=== PATIENT | female | born 1940 | race African-American/Black ===

== ENCOUNTER 2017-10-06 07:30 | Day surgery (SDC) | payer MEDICARE, BC ==
[~2017-10-06] VITALS: Ht 160 cm; Wt 43.5 kg
[~2017-10-06 07:30] MED LIST: ASPI81TA35; ESOM20CA; HYDR-2510; POTA99TA4; PRED5TAB48
[2017-10-06] MEDS ORDERED: PROPOFOL 10MG/ML 100ML 100 ML IV ONE (07:39)
[2017-10-06] MEDS ORDERED: GENTAMICIN SULF 40MG/ML 2ML VIAL ONE (08:05)
[2017-10-06] MEDS ORDERED: DEXAMETHASONE 4MG/ML 1ML VIAL ONE (08:05)
[2017-10-06] MEDS ORDERED: LIDOCAINE HCL 1% 20ML VIAL (Pyxis) INJ ONE (08:06)
[2017-10-06] MEDS ORDERED: BUPIVACAINE HCL/PF 0.25% (2.5MG/ML) 10ML ONE (08:06)
[2017-10-06] MEDS ORDERED: BETAMETHASONE ACET/BETAMET 30 MG/5 ML VIAL IM ONE (08:08)
[2017-10-06] MEDS ORDERED: FENTANYL CITRATE/PF 50MCG/ML 2ML VIAL IV PRN (09:15)
[2017-10-06] MEDS ORDERED: ONDANSETRON HCL 4MG/2ML VIAL IV PRN (09:15)
[2017-10-06] MEDS ORDERED: MORPHINE SULFATE 2 MG/ML CPJ (NOT FOR IM USE) IV PRN (09:15)
[2017-10-06] MEDS ORDERED: CALC-25 PO (10:06)
[2017-10-06] MEDS ORDERED: MULT-1203 PO (10:06)
[2017-10-06] MEDS ORDERED: PRED5TAB48 PO (10:06)
[2017-10-06] MEDS ORDERED: AZAT50TA18 PO (10:06)
[2017-10-06] MEDS ORDERED: VITA400T7 PO (10:06)
[2017-10-06] MEDS ORDERED: POTA20TA82 PO (10:06)
[2017-10-06] MEDS ORDERED: HYDR-2510 PO (10:06)
== END 2017-10-06 11:45 | disposition home or self-care (01) ==
LOC: OR 07:30
PROVIDERS: ATTEND Podiatrist Foot & Ankle Surgery
DX: M20.22 Hallux rigidus, left foot (principal); M89.9 Disorder of bone, unspecified; I10 Essential (primary) hypertension; B19.20 Unspecified viral hepatitis C without hepatic coma; K21.9 Gastro-esophageal reflux disease without esophagitis; M19.90 Unspecified osteoarthritis, unspecified site; Z98.890 Other specified postprocedural states; Z79.899 Other long term (current) drug therapy; Z79.82 Long term (current) use of aspirin
CPT/HCPCS: 28104; 88304; 88311; J0702; J1580; J2704; J3490; J7120; J1100

== ENCOUNTER 2021-05-27 16:25 | Inpatient (IN) | payer BC ==
[~2021-05-27] VITALS: Ht 152.4 cm; Wt 40.9 kg
[~2021-05-27 16:25] MED LIST changes: -ASPI81TA35; +ASPI81TA47; +AZAT50TA18 PO; +CALC-26 PO; -HYDR-2510; +HYDR50TA PO; +MULT-1203 PO; +POTA20TA82 PO; -POTA99TA4; -PRED5TAB48; +PRED5TAB48 PO; +VITA400T7 PO
[2021-05-27 20:00] VITALS: BP_SYST 147; BP_SYST 151; BP_DIAS 91; BP_DIAS 93
[2021-05-27] MEDS ORDERED: ONDANSETRON HCL 4MG TABLET PO PRN (20:00)
[2021-05-27] MEDS ORDERED: ACETAMINOPHEN 325MG TABLET PO PRN ×2 (20:00)
[2021-05-28 06:14] LABS: BASOPHILS % 0.4 % (0.0-2.0); EOSINOPHILS % 0.9 % (0.0-5.0); HEMATOCRIT. 42.3 % (36.0-48.0); LYMPHOCYTES % 34.9 % (20.0-50.0); MEAN CORPUSCULAR HEMOGLOBIN 29.5 pg (28.0-32.0); MEAN CORPUSCULAR VOLUME 89.2 fL (81.0-99.0); MEAN PLATELET VOLUME 8.1 fl (7.4-10.4); MONOCYTES % 9.7 % (2.0-8.0); NEUTROPHILS % 54.1 % (40.0-76.0); PLATELET 251 x1000/uL (130-400); RED BLOOD CELL COUNT 4.74 mill/uL (4.2-5.4); RED CELL DISTRIBUTION WIDTH 13.5 % (11.6-14.6)
[2021-05-28 06:21] LABS: CHLORIDE 119 mEq/L (98-107)
[2021-05-28 06:33] LABS: CREATINE KINASE 48 IU/L (26-192)
[2021-05-28 06:39] LABS: PHOSPHORUS 2.9 mg/dL (2.5-4.9)
[2021-05-28 06:42] LABS: FERRITIN 517 ng/mL (10-291)
[2021-05-28 06:46] LABS: TOTAL IRON BINDING CAPACITY 195 ug/dL (250-450)
[2021-05-28 06:53] LABS: FOLIC ACID (FOLATE) SERUM >20 ng/mL ng/mL (>5.38)
[2021-05-28 06:56] LABS: VITAMIN B12 SERUM 1184 pg/mL (211-911)
[2021-05-28 08:00] VITALS: BP 136/82
[2021-05-28] MEDS: MULTIVITAMINS,THER W-MINERALS TABLET PO SCH (08:34)
[2021-05-28] MEDS: ASCORBIC ACID 500 MG TABLET PO SCH (08:34)
[2021-05-28] MEDS: ZINC SULFATE 220 MG ( 50 ) CAPSULE PO SCH (08:34)
[2021-05-28] MEDS: ENOXAPARIN 30MG/0.3ML SYR SUBCUT SCH (08:37)
[2021-05-28 08:45] LABS: CLARITY URINE CLOUDY (CLEAR); COLOR URINE DARK YELLOW (YELLOW); KETONES URINE TRACE (NEGATIVE); LEUKOCYTE ESTERASE URINE NEGATIVE (NEGATIVE); NITRITE URINE NEGATIVE (NEGATIVE); OCCULT BLOOD URINE NEGATIVE (NEGATIVE); PROTEIN URINE TRACE (NEGATIVE); SPECIFIC GRAVITY URINE 1.018 (1.005-1.030)
[2021-05-28] MEDS ORDERED: POTASSIUM CHLORIDE 20MEQ TABLET SR PO NR ×2 (15:30→15:45)
[2021-05-28] MEDS: DOCUSATE SODIUM 100MG CAPSULE PO SCH (16:11)
[2021-05-28 20:00] VITALS: BP 145/87
[2021-05-28] MEDS: LACTULOSE 20G/30ML UDC PO PRN (21:15)
[2021-05-28] MEDS: POLYETHYLENE GLYCOL 3350 (17GM) 1 DOSE PACK PO SCH (21:15)
[2021-05-29 07:25] LABS: CHLORIDE 116 mEq/L (98-107)
[2021-05-29 07:30] VITALS: BP 154/85
[2021-05-29] MEDS: ZINC SULFATE 220 MG ( 50 ) CAPSULE PO SCH (08:40)
[2021-05-29] MEDS: ASCORBIC ACID 500 MG TABLET PO SCH (08:40)
[2021-05-29] MEDS: MULTIVITAMINS,THER W-MINERALS TABLET PO SCH (08:40)
[2021-05-29] MEDS: ENOXAPARIN 30MG/0.3ML SYR SUBCUT SCH (08:41)
[2021-05-29] MEDS: DOCUSATE SODIUM 100MG CAPSULE PO SCH (08:44)
[2021-05-29] MEDS: LACTULOSE 20G/30ML UDC PO PRN (08:44)
[2021-05-29 20:00] VITALS: BP 125/73
[2021-05-29] MEDS: POLYETHYLENE GLYCOL 3350 (17GM) 1 DOSE PACK PO SCH ×3 (21:00→22:06)
[2021-05-30 08:24] VITALS: BP 107/56
[2021-05-30 08:29] LABS: BASOPHILS % 0.4 % (0.0-2.0); HEMOGLOBIN. 13.5 g/dL (12.0-16.0); LYMPHOCYTES % 30.4 % (20.0-50.0); MEAN PLATELET VOLUME 8.6 fl (7.4-10.4); MONOCYTES % 11.4 % (2.0-8.0); NEUTROPHILS % 56.8 % (40.0-76.0); PLATELET 226 x1000/uL (130-400); RED CELL DISTRIBUTION WIDTH 13.6 % (11.6-14.6)
[2021-05-30 08:38] LABS: INR 1.3; PROTHROMBIN TIME 13.3 sec (9.6-11.0)
[2021-05-30] MEDS: DOCUSATE SODIUM 100MG CAPSULE PO SCH (09:00)
[2021-05-30 09:14] LABS: CHLORIDE 119 mEq/L (98-107)
[2021-05-30] MEDS: MULTIVITAMINS,THER W-MINERALS TABLET PO SCH (10:03)
[2021-05-30] MEDS: ZINC SULFATE 220 MG ( 50 ) CAPSULE PO SCH (10:03)
[2021-05-30] MEDS: ASCORBIC ACID 500 MG TABLET PO SCH (10:03)
[2021-05-30] MEDS: ENOXAPARIN 30MG/0.3ML SYR SUBCUT SCH (10:04)
[2021-05-30] MEDS ORDERED: DEXT 5%/0.45% NACL 500ML 500 ML IV SCH (12:30)
[2021-05-30] MEDS: DEXT 5%/0.45% NACL 1000ML 1,000 ML IV SCH (15:00)
[2021-05-30 20:00] VITALS: BP 109/59
[2021-05-30] MEDS: POLYETHYLENE GLYCOL 3350 (17GM) 1 DOSE PACK PO SCH (21:00)
[2021-05-31] MEDS: DEXT 5%/0.45% NACL 1000ML 1,000 ML IV SCH ×2 (02:36→14:26)
[2021-05-31 08:23] VITALS: BP 153/86
[2021-05-31] MEDS: ASCORBIC ACID 500 MG TABLET PO SCH (08:25)
[2021-05-31] MEDS: DOCUSATE SODIUM 100MG CAPSULE PO SCH (08:25)
[2021-05-31] MEDS: ZINC SULFATE 220 MG ( 50 ) CAPSULE PO SCH (08:25)
[2021-05-31] MEDS: MULTIVITAMINS,THER W-MINERALS TABLET PO SCH (08:25)
[2021-05-31] MEDS: ENOXAPARIN 30MG/0.3ML SYR SUBCUT SCH ×2 (08:26→08:31)
[2021-05-31 20:00] VITALS: BP 137/80
[2021-05-31] MEDS: POLYETHYLENE GLYCOL 3350 (17GM) 1 DOSE PACK PO SCH (21:00)
[2021-06-01] MEDS: DEXT 5%/0.45% NACL 1000ML 1,000 ML IV SCH ×2 (05:04→19:17)
[2021-06-01 06:46] LABS: BASOPHILS % 0.2 % (0.0-2.0); EOSINOPHILS % 0.7 % (0.0-5.0); HEMATOCRIT. 38.4 % (36.0-48.0); LYMPHOCYTES % 25.2 % (20.0-50.0); MEAN CORPUSCULAR HEMOGLOBIN 30.1 pg (28.0-32.0); MEAN CORPUSCULAR VOLUME 89.2 fL (81.0-99.0); MEAN PLATELET VOLUME 8.5 fl (7.4-10.4); MONOCYTES % 13.4 % (2.0-8.0); NEUTROPHILS % 60.5 % (40.0-76.0); PLATELET 175 x1000/uL (130-400); RED CELL DISTRIBUTION WIDTH 13.3 % (11.6-14.6)
[2021-06-01 06:57] LABS: CHLORIDE 115 mEq/L (98-107)
[2021-06-01 07:58] VITALS: BP 129/71
[2021-06-01] MEDS ORDERED: POTASSIUM CHLORIDE 20MEQ TABLET SR PO NR (09:45)
[2021-06-01] MEDS: ZINC SULFATE 220 MG ( 50 ) CAPSULE PO SCH (09:59)
[2021-06-01] MEDS: MULTIVITAMINS,THER W-MINERALS TABLET PO SCH (09:59)
[2021-06-01] MEDS: DOCUSATE SODIUM 100MG CAPSULE PO SCH (09:59)
[2021-06-01] MEDS: ENOXAPARIN 30MG/0.3ML SYR SUBCUT SCH (09:59)
[2021-06-01] MEDS: ASCORBIC ACID 500 MG TABLET PO SCH (09:59)
[2021-06-01 20:00] VITALS: BP 136/85
[2021-06-01] MEDS: POLYETHYLENE GLYCOL 3350 (17GM) 1 DOSE PACK PO SCH (20:32)
[2021-06-02 06:53] LABS: CHLORIDE 111 mEq/L (98-107)
[2021-06-02 08:00] VITALS: BP 155/92
[2021-06-02] MEDS: ASCORBIC ACID 500 MG TABLET PO SCH (08:24)
[2021-06-02] MEDS: MULTIVITAMINS,THER W-MINERALS TABLET PO SCH (08:24)
[2021-06-02] MEDS: DOCUSATE SODIUM 100MG CAPSULE PO SCH (08:24)
[2021-06-02] MEDS: ENOXAPARIN 30MG/0.3ML SYR SUBCUT SCH (08:24)
[2021-06-02] MEDS: ZINC SULFATE 220 MG ( 50 ) CAPSULE PO SCH (08:27)
[2021-06-02] MEDS: DEXT 5%/0.45% NACL 1000ML 1,000 ML IV SCH (08:36)
[2021-06-02] MEDS ORDERED: POTASSIUM CHLORIDE 20MEQ TABLET SR PO NR (12:30)
[2021-06-02 19:10] LABS: 25-HYDROXY VITAMIN D3 31 ng/mL (.)
[2021-06-02 20:00] VITALS: BP 124/63
[2021-06-02] MEDS: POLYETHYLENE GLYCOL 3350 (17GM) 1 DOSE PACK PO SCH (20:53)
[2021-06-03] MEDS: DEXT 5%/0.45% NACL 1000ML 1,000 ML IV SCH ×4 (00:58→22:25)
[2021-06-03 06:48] LABS: CHLORIDE 111 mEq/L (98-107)
[2021-06-03 07:57] VITALS: BP 159/82
[2021-06-03] MEDS: MULTIVITAMINS,THER W-MINERALS TABLET PO SCH (08:18)
[2021-06-03] MEDS: ASCORBIC ACID 500 MG TABLET PO SCH (08:18)
[2021-06-03] MEDS: ZINC SULFATE 220 MG ( 50 ) CAPSULE PO SCH (08:18)
[2021-06-03] MEDS: DOCUSATE SODIUM 100MG CAPSULE PO SCH (08:18)
[2021-06-03] MEDS: ENOXAPARIN 30MG/0.3ML SYR SUBCUT SCH (08:19)
[2021-06-03] MEDS: POTASSIUM CHLORIDE 20MEQ TABLET SR PO SCH (16:12)
[2021-06-03 20:00] VITALS: BP 129/73
[2021-06-03] MEDS: POLYETHYLENE GLYCOL 3350 (17GM) 1 DOSE PACK PO SCH ×2 (21:00→22:20)
[2021-06-04 07:42] LABS: CHLORIDE 107 mEq/L (98-107)
[2021-06-04 08:26] VITALS: BP 190/98
[2021-06-04] MEDS: ZINC SULFATE 220 MG ( 50 ) CAPSULE PO SCH (10:00)
[2021-06-04] MEDS: MULTIVITAMINS,THER W-MINERALS TABLET PO SCH (10:00)
[2021-06-04] MEDS: POTASSIUM CHLORIDE 20MEQ TABLET SR PO SCH ×2 (10:00→18:21)
[2021-06-04] MEDS: DOCUSATE SODIUM 100MG CAPSULE PO SCH (10:00)
[2021-06-04] MEDS: ASCORBIC ACID 500 MG TABLET PO SCH (10:01)
[2021-06-04] MEDS: ENOXAPARIN 30MG/0.3ML SYR SUBCUT SCH (10:01)
[2021-06-04] MEDS: DEXT 5%/0.45% NACL 1000ML 1,000 ML IV SCH ×2 (12:45→21:07)
[2021-06-04] MEDS: POLYETHYLENE GLYCOL 3350 (17GM) 1 DOSE PACK PO SCH (18:21)
[2021-06-04] MEDS: ERGOCALCIFEROL 50000UNITS CAPSULE PO SCH (18:21)
[2021-06-04 20:00] VITALS: BP 122/88
[2021-06-04] MEDS: SENNOSIDES/DOCUSATE SOD 8.6/50MG TABLET PO SCH (21:07)
[2021-06-05 08:00] VITALS: BP 151/87
[2021-06-05] MEDS: DOCUSATE SODIUM 100MG CAPSULE PO SCH (09:08)
[2021-06-05] MEDS: ZINC SULFATE 220 MG ( 50 ) CAPSULE PO SCH (09:08)
[2021-06-05] MEDS: ASCORBIC ACID 500 MG TABLET PO SCH (09:08)
[2021-06-05] MEDS: POTASSIUM CHLORIDE 20MEQ TABLET SR PO SCH ×2 (09:08→17:08)
[2021-06-05] MEDS: MULTIVITAMINS,THER W-MINERALS TABLET PO SCH (09:08)
[2021-06-05] MEDS: POLYETHYLENE GLYCOL 3350 (17GM) 1 DOSE PACK PO SCH (09:09)
[2021-06-05] MEDS: ENOXAPARIN 30MG/0.3ML SYR SUBCUT SCH (09:15)
[2021-06-05] MEDS: DEXT 5%/0.45% NACL 1000ML 1,000 ML IV SCH (16:01)
[2021-06-05 20:00] VITALS: BP 155/94
[2021-06-05] MEDS: SENNOSIDES/DOCUSATE SOD 8.6/50MG TABLET PO SCH (20:31)
[2021-06-06] MEDS: DEXT 5%/0.45% NACL 1000ML 1,000 ML IV SCH ×2 (04:17→17:46)
[2021-06-06 07:33] LABS: HEMATOCRIT. 36.2 % (36.0-48.0); HEMOGLOBIN. 12.1 g/dL (12.0-16.0); MEAN CORPUSCULAR HEMOGLOBIN 29.3 pg (28.0-32.0); MEAN CORPUSCULAR VOLUME 87.5 fL (81.0-99.0); MEAN PLATELET VOLUME 8.8 fl (7.4-10.4); PLATELET 193 x1000/uL (130-400); RED BLOOD CELL COUNT 4.13 mill/uL (4.2-5.4); RED CELL DISTRIBUTION WIDTH 13.4 % (11.6-14.6)
[2021-06-06 07:44] LABS: CHLORIDE 107 mEq/L (98-107)
[2021-06-06 07:51] VITALS: BP 144/82
[2021-06-06] MEDS: ENOXAPARIN 30MG/0.3ML SYR SUBCUT SCH (08:14)
[2021-06-06] MEDS: DOCUSATE SODIUM 100MG CAPSULE PO SCH (08:14)
[2021-06-06] MEDS: POTASSIUM CHLORIDE 20MEQ TABLET SR PO SCH ×2 (08:14→16:39)
[2021-06-06] MEDS: ZINC SULFATE 220 MG ( 50 ) CAPSULE PO SCH (08:14)
[2021-06-06] MEDS: MULTIVITAMINS,THER W-MINERALS TABLET PO SCH (08:14)
[2021-06-06] MEDS: ASCORBIC ACID 500 MG TABLET PO SCH (08:14)
[2021-06-06] MEDS: POLYETHYLENE GLYCOL 3350 (17GM) 1 DOSE PACK PO SCH (08:14)
[2021-06-06] MEDS ORDERED: POTASSIUM CHLORIDE 20MEQ TABLET SR PO NR (15:00)
[2021-06-06 15:55] LABS: PLATELET ESTIMATE NORMAL
[2021-06-06 20:00] VITALS: BP 125/71
[2021-06-06] MEDS: SENNOSIDES/DOCUSATE SOD 8.6/50MG TABLET PO SCH (20:36)
[2021-06-07 07:48] VITALS: BP 160/85
[2021-06-07] MEDS: ZINC SULFATE 220 MG ( 50 ) CAPSULE PO SCH (09:02)
[2021-06-07] MEDS: ASCORBIC ACID 500 MG TABLET PO SCH (09:02)
[2021-06-07] MEDS: MULTIVITAMINS,THER W-MINERALS TABLET PO SCH (09:02)
[2021-06-07] MEDS: POTASSIUM CHLORIDE 20MEQ TABLET SR PO SCH ×3 (09:02→17:47)
[2021-06-07] MEDS: DOCUSATE SODIUM 100MG CAPSULE PO SCH (09:02)
[2021-06-07] MEDS: POLYETHYLENE GLYCOL 3350 (17GM) 1 DOSE PACK PO SCH (09:02)
[2021-06-07] MEDS: ENOXAPARIN 30MG/0.3ML SYR SUBCUT SCH (09:02)
[2021-06-07] MEDS: DEXT 5%/0.45% NACL 1000ML 1,000 ML IV SCH ×2 (09:03→21:40)
[2021-06-07 20:00] VITALS: BP 126/66
[2021-06-07] MEDS: SENNOSIDES/DOCUSATE SOD 8.6/50MG TABLET PO SCH (21:40)
[2021-06-08 08:00] VITALS: BP 164/92
[2021-06-08] MEDS: DOCUSATE SODIUM 100MG CAPSULE PO SCH (11:02)
[2021-06-08] MEDS: POTASSIUM CHLORIDE 20MEQ TABLET SR PO SCH ×2 (11:02→17:50)
[2021-06-08] MEDS: ENOXAPARIN 30MG/0.3ML SYR SUBCUT SCH (11:02)
[2021-06-08] MEDS: ZINC SULFATE 220 MG ( 50 ) CAPSULE PO SCH (11:02)
[2021-06-08] MEDS: ASCORBIC ACID 500 MG TABLET PO SCH (11:02)
[2021-06-08] MEDS: POLYETHYLENE GLYCOL 3350 (17GM) 1 DOSE PACK PO SCH ×2 (11:02→11:04)
[2021-06-08] MEDS: MULTIVITAMINS,THER W-MINERALS TABLET PO SCH (11:03)
[2021-06-08] MEDS: CLONIDINE 0.1MG TABLET PO PRN (11:03)
[2021-06-08] MEDS: DEXT 5%/0.45% NACL 1000ML 1,000 ML IV SCH ×2 (11:04→21:06)
[2021-06-08] MEDS ORDERED: BISACODYL 10MG SUPP PR PRN (15:00)
[2021-06-08 20:00] VITALS: BP 134/70
[2021-06-08] MEDS: SENNOSIDES/DOCUSATE SOD 8.6/50MG TABLET PO SCH (21:06)
[2021-06-09 07:50] VITALS: BP 179/103
[2021-06-09] MEDS: ENOXAPARIN 30MG/0.3ML SYR SUBCUT SCH (08:08)
[2021-06-09] MEDS: POLYETHYLENE GLYCOL 3350 (17GM) 1 DOSE PACK PO SCH (08:09)
[2021-06-09] MEDS: DOCUSATE SODIUM 100MG CAPSULE PO SCH (08:09)
[2021-06-09] MEDS: ASCORBIC ACID 500 MG TABLET PO SCH (08:09)
[2021-06-09] MEDS: CLONIDINE 0.1MG TABLET PO PRN (08:09)
[2021-06-09] MEDS: POTASSIUM CHLORIDE 20MEQ TABLET SR PO SCH ×3 (08:09→16:58)
[2021-06-09] MEDS: ZINC SULFATE 220 MG ( 50 ) CAPSULE PO SCH (08:09)
[2021-06-09] MEDS: MULTIVITAMINS,THER W-MINERALS TABLET PO SCH (08:09)
[2021-06-09 09:31] VITALS: BP 141/87
[2021-06-09] MEDS: DEXT 5%/0.45% NACL 1000ML 1,000 ML IV SCH (12:11)
[2021-06-09] MEDS: SENNOSIDES/DOCUSATE SOD 8.6/50MG TABLET PO SCH (21:54)
[2021-06-09 22:38] VITALS: BP 138/61
[2021-06-10] MEDS: DEXT 5%/0.45% NACL 1000ML 1,000 ML IV SCH ×2 (02:54→18:04)
[2021-06-10 08:00] VITALS: BP 162/98
[2021-06-10] MEDS: DOCUSATE SODIUM 100MG CAPSULE PO SCH ×2 (09:00→09:29)
[2021-06-10] MEDS: POTASSIUM CHLORIDE 20MEQ TABLET SR PO SCH ×3 (09:00→18:04)
[2021-06-10] MEDS: ZINC SULFATE 220 MG ( 50 ) CAPSULE PO SCH ×2 (09:00→09:29)
[2021-06-10] MEDS: MULTIVITAMINS,THER W-MINERALS TABLET PO SCH ×2 (09:00→09:30)
[2021-06-10] MEDS: ASCORBIC ACID 500 MG TABLET PO SCH ×2 (09:00→09:29)
[2021-06-10] MEDS: POLYETHYLENE GLYCOL 3350 (17GM) 1 DOSE PACK PO SCH ×2 (09:00→09:31)
[2021-06-10] MEDS: ENOXAPARIN 30MG/0.3ML SYR SUBCUT SCH (09:30)
[2021-06-10] MEDS: CLONIDINE 0.1MG TABLET PO PRN ×2 (09:33→11:09)
[2021-06-10 11:33] VITALS: BP 170/101
[2021-06-10] MEDS: AMLODIPINE 5MG TABLET PO SCH (15:00)
[2021-06-10 20:00] VITALS: BP 129/90
[2021-06-10] MEDS: SENNOSIDES/DOCUSATE SOD 8.6/50MG TABLET PO SCH (20:42)
[2021-06-11] MEDS: DEXT 5%/0.45% NACL 1000ML 1,000 ML IV SCH ×2 (02:44→17:40)
[2021-06-11 07:29] LABS: CHLORIDE 104 mEq/L (98-107)
[2021-06-11 07:47] LABS: BASOPHILS % 0.3 % (0.0-2.0); EOSINOPHILS % 0.9 % (0.0-5.0); HEMATOCRIT. 39.4 % (36.0-48.0); HEMOGLOBIN. 13.3 g/dL (12.0-16.0); LYMPHOCYTES % 24.5 % (20.0-50.0); MEAN CORPUSCULAR HEMOGLOBIN 28.9 pg (28.0-32.0); MEAN CORPUSCULAR VOLUME 85.8 fL (81.0-99.0); MEAN PLATELET VOLUME 7.8 fl (7.4-10.4); MONOCYTES % 13.6 % (2.0-8.0); NEUTROPHILS % 60.7 % (40.0-76.0); PLATELET 242 x1000/uL (130-400); RED CELL DISTRIBUTION WIDTH 13.5 % (11.6-14.6)
[2021-06-11 08:20] VITALS: BP 176/102
[2021-06-11] MEDS: ASCORBIC ACID 500 MG TABLET PO SCH (09:06)
[2021-06-11] MEDS: POTASSIUM CHLORIDE 20MEQ TABLET SR PO SCH ×2 (09:06→17:00)
[2021-06-11] MEDS: ERGOCALCIFEROL 50000UNITS CAPSULE PO SCH (09:06)
[2021-06-11] MEDS: DOCUSATE SODIUM 100MG CAPSULE PO SCH (09:06)
[2021-06-11] MEDS: AMLODIPINE 5MG TABLET PO SCH (09:07)
[2021-06-11] MEDS: ZINC SULFATE 220 MG ( 50 ) CAPSULE PO SCH (09:08)
[2021-06-11] MEDS: MULTIVITAMINS,THER W-MINERALS TABLET PO SCH (09:09)
[2021-06-11] MEDS: ENOXAPARIN 30MG/0.3ML SYR SUBCUT SCH (09:10)
[2021-06-11] MEDS: POLYETHYLENE GLYCOL 3350 (17GM) 1 DOSE PACK PO SCH (09:10)
[2021-06-11 20:00] VITALS: BP 152/94
[2021-06-11] MEDS: SENNOSIDES/DOCUSATE SOD 8.6/50MG TABLET PO SCH (21:00)
[2021-06-11] MEDS: POTASSIUM CHLORIDE 20MEQ/PACKET PO SCH (21:48)
[2021-06-12 07:48] VITALS: BP 165/90
[2021-06-12] MEDS: MULTIVITAMINS,THER W-MINERALS TABLET PO SCH ×2 (08:19→08:39)
[2021-06-12] MEDS: AMLODIPINE 5MG TABLET PO SCH (08:20)
[2021-06-12] MEDS: POLYETHYLENE GLYCOL 3350 (17GM) 1 DOSE PACK PO SCH ×2 (08:20→08:38)
[2021-06-12] MEDS: ASCORBIC ACID 500 MG TABLET PO SCH ×2 (08:20→08:39)
[2021-06-12] MEDS: POTASSIUM CHLORIDE 20MEQ/PACKET PO SCH ×3 (08:20→17:00)
[2021-06-12] MEDS: ENOXAPARIN 30MG/0.3ML SYR SUBCUT SCH (08:21)
[2021-06-12] MEDS: DOCUSATE SODIUM 100MG CAPSULE PO SCH ×2 (08:21→08:38)
[2021-06-12] MEDS: ZINC SULFATE 220 MG ( 50 ) CAPSULE PO SCH ×2 (08:21→08:39)
[2021-06-12] MEDS: METOPROLOL TARTRATE 25MG TABLET PO SCH ×2 (15:00→20:08)
[2021-06-12 20:00] VITALS: BP 152/93
[2021-06-12] MEDS: SENNOSIDES/DOCUSATE SOD 8.6/50MG TABLET PO SCH (20:08)
[2021-06-12] MEDS: DEXT 5%/0.45% NACL 1000ML 1,000 ML IV SCH (20:08)
[2021-06-13] MEDS: DEXT 5%/0.45% NACL 1000ML 1,000 ML IV SCH ×2 (06:55→23:25)
[2021-06-13 07:43] VITALS: BP 151/57
[2021-06-13] MEDS: ASCORBIC ACID 500 MG TABLET PO SCH (09:14)
[2021-06-13] MEDS: MULTIVITAMINS,THER W-MINERALS TABLET PO SCH (09:14)
[2021-06-13] MEDS: ENOXAPARIN 30MG/0.3ML SYR SUBCUT SCH (09:14)
[2021-06-13] MEDS: DOCUSATE SODIUM 100MG CAPSULE PO SCH (09:14)
[2021-06-13] MEDS: POLYETHYLENE GLYCOL 3350 (17GM) 1 DOSE PACK PO SCH (09:14)
[2021-06-13] MEDS: ZINC SULFATE 220 MG ( 50 ) CAPSULE PO SCH (09:14)
[2021-06-13] MEDS: POTASSIUM CHLORIDE 20MEQ/PACKET PO SCH ×2 (09:14→16:48)
[2021-06-13] MEDS: AMLODIPINE 5MG TABLET PO SCH (09:15)
[2021-06-13] MEDS: METOPROLOL TARTRATE 25MG TABLET PO SCH ×2 (09:15→21:59)
[2021-06-13] MEDS: MEGESTROL ACETATE 400 MG/10 ML UDC PO SCH ×2 (12:00→12:29)
[2021-06-13] MEDS: SENNOSIDES/DOCUSATE SOD 8.6/50MG TABLET PO SCH (21:58)
[2021-06-14 06:59] LABS: BASOPHILS % 0.2 % (0.0-2.0); EOSINOPHILS % 1.3 % (0.0-5.0); HEMATOCRIT. 38.4 % (36.0-48.0); LYMPHOCYTES % 26.1 % (20.0-50.0); MEAN CORPUSCULAR HEMOGLOBIN 28.9 pg (28.0-32.0); MEAN CORPUSCULAR VOLUME 85.6 fL (81.0-99.0); MEAN PLATELET VOLUME 7.1 fl (7.4-10.4); MONOCYTES % 13.9 % (2.0-8.0); NEUTROPHILS % 58.5 % (40.0-76.0); PLATELET 230 x1000/uL (130-400); RED BLOOD CELL COUNT 4.49 mill/uL (4.2-5.4); RED CELL DISTRIBUTION WIDTH 13.5 % (11.6-14.6)
[2021-06-14 07:06] LABS: CHLORIDE 106 mEq/L (98-107)
[2021-06-14] MEDS: DEXT 5%/0.45% NACL 1000ML 1,000 ML IV SCH (07:22)
[2021-06-14 08:28] VITALS: BP 130/71
[2021-06-14] MEDS: ENOXAPARIN 30MG/0.3ML SYR SUBCUT SCH (09:00)
[2021-06-14] MEDS: POLYETHYLENE GLYCOL 3350 (17GM) 1 DOSE PACK PO SCH (12:18)
[2021-06-14] MEDS: AMLODIPINE 5MG TABLET PO SCH (12:18)
[2021-06-14] MEDS: ZINC SULFATE 220 MG ( 50 ) CAPSULE PO SCH (12:19)
[2021-06-14] MEDS: POTASSIUM CHLORIDE 20MEQ/PACKET PO SCH ×2 (12:19→16:01)
[2021-06-14] MEDS: ASCORBIC ACID 500 MG TABLET PO SCH (12:20)
[2021-06-14] MEDS: MULTIVITAMINS,THER W-MINERALS TABLET PO SCH (12:20)
[2021-06-14] MEDS: MEGESTROL ACETATE 400 MG/10 ML UDC PO SCH (12:21)
[2021-06-14] MEDS: METOPROLOL TARTRATE 25MG TABLET PO SCH ×2 (12:22→20:38)
[2021-06-14] MEDS: DOCUSATE SODIUM 100MG CAPSULE PO SCH (12:23)
[2021-06-14 20:00] VITALS: BP 152/56
[2021-06-14] MEDS: SENNOSIDES/DOCUSATE SOD 8.6/50MG TABLET PO SCH (20:38)
[2021-06-15] MEDS: DEXT 5%/0.45% NACL 1000ML 1,000 ML IV SCH ×2 (02:11→21:52)
[2021-06-15 08:00] VITALS: BP 102/61
[2021-06-15] MEDS: MEGESTROL ACETATE 400 MG/10 ML UDC PO SCH (09:00)
[2021-06-15] MEDS: POLYETHYLENE GLYCOL 3350 (17GM) 1 DOSE PACK PO SCH (09:00)
[2021-06-15] MEDS: ZINC SULFATE 220 MG ( 50 ) CAPSULE PO SCH (09:00)
[2021-06-15] MEDS: MULTIVITAMINS,THER W-MINERALS TABLET PO SCH (09:00)
[2021-06-15] MEDS: DOCUSATE SODIUM 100MG CAPSULE PO SCH (09:00)
[2021-06-15] MEDS: POTASSIUM CHLORIDE 20MEQ/PACKET PO SCH ×2 (09:00→17:00)
[2021-06-15] MEDS: METOPROLOL TARTRATE 25MG TABLET PO SCH ×2 (09:00→21:52)
[2021-06-15] MEDS: ASCORBIC ACID 500 MG TABLET PO SCH (09:00)
[2021-06-15] MEDS: AMLODIPINE 5MG TABLET PO SCH (09:00)
[2021-06-15] MEDS: ENOXAPARIN 30MG/0.3ML SYR SUBCUT SCH (09:59)
[2021-06-15 20:00] VITALS: BP 138/72
[2021-06-15] MEDS: SENNOSIDES/DOCUSATE SOD 8.6/50MG TABLET PO SCH (21:52)
[2021-06-16] VITALS (8 sets, daily range): BP systolic 64–108; BP diastolic 42–60
[2021-06-16 07:36] LABS: BASOPHILS % 0.2 % (0.0-2.0); EOSINOPHILS % 0.3 % (0.0-5.0); HEMATOCRIT. 37.9 % (36.0-48.0); HEMOGLOBIN. 12.6 g/dL (12.0-16.0); LYMPHOCYTES % 15.3 % (20.0-50.0); MEAN CORPUSCULAR HEMOGLOBIN 28.3 pg (28.0-32.0); MEAN CORPUSCULAR VOLUME 85.1 fL (81.0-99.0); MEAN PLATELET VOLUME 7.6 fl (7.4-10.4); MONOCYTES % 13.1 % (2.0-8.0); NEUTROPHILS % 71.1 % (40.0-76.0); PLATELET 220 x1000/uL (130-400); RED BLOOD CELL COUNT 4.46 mill/uL (4.2-5.4); RED CELL DISTRIBUTION WIDTH 13.5 % (11.6-14.6)
[2021-06-16 07:42] LABS: INR 1.2; PROTHROMBIN TIME 13.2 sec (9.6-11.0)
[2021-06-16 08:02] LABS: CHLORIDE 106 mEq/L (98-107)
[2021-06-16] MEDS: METOPROLOL TARTRATE 25MG TABLET PO SCH ×2 (09:00→21:00)
[2021-06-16] MEDS: POLYETHYLENE GLYCOL 3350 (17GM) 1 DOSE PACK PO SCH (09:00)
[2021-06-16] MEDS: AMLODIPINE 5MG TABLET PO SCH (09:00)
[2021-06-16] MEDS: MULTIVITAMINS,THER W-MINERALS TABLET PO SCH (10:04)
[2021-06-16] MEDS: ZINC SULFATE 220 MG ( 50 ) CAPSULE PO SCH (10:04)
[2021-06-16] MEDS: MEGESTROL ACETATE 400 MG/10 ML UDC PO SCH (10:04)
[2021-06-16] MEDS: ASCORBIC ACID 500 MG TABLET PO SCH (10:04)
[2021-06-16] MEDS: ENOXAPARIN 30MG/0.3ML SYR SUBCUT SCH (10:04)
[2021-06-16] MEDS: DOCUSATE SODIUM 100MG CAPSULE PO SCH (10:04)
[2021-06-16] MEDS: POTASSIUM CHLORIDE 20MEQ/PACKET PO SCH ×2 (10:04→17:00)
[2021-06-16] MEDS ORDERED: CEFAZOLIN 1000MG PREMIX 50 ML IV NR (13:30)
[2021-06-16] MEDS ORDERED: MIDAZOLAM HCL 5 MG/5 ML VIAL IV PRN (15:16)
[2021-06-16] MEDS ORDERED: MIDAZOLAM HCL 5 MG/5 ML VIAL ONE (15:19)
[2021-06-16] MEDS ORDERED: FENTANYL CITRATE/PF 50MCG/ML 2ML VIAL ONE (15:26)
[2021-06-16] MEDS ORDERED: SODIUM CHLORIDE 0.9% 500 ML IV ONE (16:30)
[2021-06-16 20:54] LABS: BASOPHILS % 0.1 % (0.0-2.0); EOSINOPHILS % 0.2 % (0.0-5.0); HEMATOCRIT. 24.4 % (36.0-48.0); HEMOGLOBIN. 8.2 g/dL (12.0-16.0); LYMPHOCYTES % 16.3 % (20.0-50.0); MEAN CORPUSCULAR HEMOGLOBIN 29.1 pg (28.0-32.0); MEAN CORPUSCULAR VOLUME 86.4 fL (81.0-99.0); MEAN PLATELET VOLUME 7.4 fl (7.4-10.4); MONOCYTES % 10.8 % (2.0-8.0); NEUTROPHILS % 72.6 % (40.0-76.0); PLATELET 155 x1000/uL (130-400); RED BLOOD CELL COUNT 2.82 mill/uL (4.2-5.4); RED CELL DISTRIBUTION WIDTH 13.6 % (11.6-14.6)
[2021-06-16 20:55] LABS: CHLORIDE 114 mEq/L (98-107)
[2021-06-16] MEDS: SENNOSIDES/DOCUSATE SOD 8.6/50MG TABLET PO SCH (21:00)
[2021-06-17] VITALS (11 sets, daily range): BP systolic 90–115; BP diastolic 33–59
[2021-06-17] MEDS: DEXT 5%/0.45% NACL 1000ML 1,000 ML IV SCH ×3 (00:37→09:42)
[2021-06-17 03:10] LABS: CHLORIDE 113 mEq/L (98-107)
[2021-06-17 03:13] LABS: INR 1.5; PROTHROMBIN TIME 15.6 sec (9.6-11.0)
[2021-06-17] MEDS: SUCRALFATE 1 G/10 ML UDC GT SCH ×2 (05:40→12:17)
[2021-06-17] MEDS: METOCLOPRAMIDE HCL 10MG/2ML VIAL IV SCH ×2 (05:41→12:17)
[2021-06-17 06:28] LABS: BASOPHILS % 0.1 % (0.0-2.0); EOSINOPHILS % 0.1 % (0.0-5.0); LYMPHOCYTES % 8.2 % (20.0-50.0); MEAN CORPUSCULAR HEMOGLOBIN 28.2 pg (28.0-32.0); MEAN CORPUSCULAR VOLUME 86.6 fL (81.0-99.0); MEAN PLATELET VOLUME 7.8 fl (7.4-10.4); MONOCYTES % 7.2 % (2.0-8.0); NEUTROPHILS % 84.4 % (40.0-76.0); PLATELET 139 x1000/uL (130-400); RED BLOOD CELL COUNT 2.23 mill/uL (4.2-5.4); RED CELL DISTRIBUTION WIDTH 13.4 % (11.6-14.6)
[2021-06-17] MEDS ORDERED: SUCRALFATE 1 G/10 ML UDC GT SCH (06:30)
[2021-06-17 07:56] LABS: HEMATOCRIT. 19.4 % (36.0-48.0); HEMOGLOBIN. 6.3 g/dL (12.0-16.0)
[2021-06-17] MEDS ORDERED: LIDOCAINE HCL 1% 20ML VIAL (Pyxis) INJ ONE (08:28)
[2021-06-17] MEDS: DOCUSATE SODIUM 100MG CAPSULE PO SCH (09:00)
[2021-06-17] MEDS: METOPROLOL TARTRATE 25MG TABLET PO SCH (09:00)
[2021-06-17] MEDS: AMLODIPINE 5MG TABLET PO SCH (09:00)
[2021-06-17] MEDS: POLYETHYLENE GLYCOL 3350 (17GM) 1 DOSE PACK PO SCH (09:00)
[2021-06-17] MEDS ORDERED: PANTOPRAZOLE SODIUM 40 MG/VIAL IV SCH (09:00)
[2021-06-17] MEDS: POTASSIUM CHLORIDE 20MEQ/PACKET PO SCH (09:41)
[2021-06-17] MEDS: ASCORBIC ACID 500 MG TABLET PO SCH (09:41)
[2021-06-17] MEDS: MEGESTROL ACETATE 400 MG/10 ML UDC PO SCH (09:41)
[2021-06-17] MEDS: ZINC SULFATE 220 MG ( 50 ) CAPSULE PO SCH (09:41)
[2021-06-17] MEDS: MULTIVITAMINS,THER W-MINERALS TABLET PO SCH (09:41)
[2021-06-17] MEDS ORDERED: DEXT 5%/0.9% NACL 1,000 ML IV SCH (14:00)
== END 2021-06-17 16:02 | disposition short-term general hospital (02) | DRG 70 ==
PROVIDERS: ADMIT Physical Medicine & Rehabilitation Spinal Cord Injury Medicine; ATTEND Internal Medicine Nephrology
DX: G93.41 Metabolic encephalopathy (principal); G82.50 Quadriplegia, unspecified; E43 Unspecified severe protein-calorie malnutrition; N17.9 Acute kidney failure, unspecified; E87.0 Hyperosmolality and hypernatremia; R47.01 Aphasia; I10 Essential (primary) hypertension; F03.90 Unspecified dementia, unspecified severity, without behavioral disturbance, psychotic disturbance, mood disturbance, and anxiety; F39 Unspecified mood [affective] disorder; L60.0 Ingrowing nail; L60.3 Nail dystrophy; M20.5X9 Other deformities of toe(s) (acquired), unspecified foot; R13.10 Dysphagia, unspecified; R62.7 Adult failure to thrive; Z82.49 Family history of ischemic heart disease and other diseases of the circulatory system; D64.9 Anemia, unspecified; D72.829 Elevated white blood cell count, unspecified; E87.6 Hypokalemia; E87.8 Other disorders of electrolyte and fluid balance, not elsewhere classified; Z93.1 Gastrostomy status
CPT/HCPCS: 36415; 36573; 71045; 80048; 80053; 81003; 82140; 82306; 82550; 82607; 82728; 82746; 82962; 83540; 83550; 83735; 84100; 84134; 84443; 85025; 86850; 86900; 86920; 87426; 88305; 88312; 88313; 92523; 92610; 93970; 97110; 97163; 97166; 97530; 97535; C1725; C1893; C9113; J0690; J1650; J2250; J2765; J3010; J3490; J7040; P9016; U0003; U0005

== ENCOUNTER 2021-06-17 17:08 | Inpatient (IN) | payer BC ==
[2021-06-17] VITALS (7 sets, daily range): BP systolic 99–117; BP diastolic 55–77
[~2021-06-17] VITALS: Ht 152.4 cm; Wt 39.0 kg
[2021-06-17] MEDS ORDERED: SENNOSIDES/DOCUSATE SOD 8.6/50MG TABLET PO PRN (19:30)
[2021-06-17 21:00] LABS: HEMATOCRIT 23.1 % (36.0-48.0); HEMOGLOBIN 7.7 g/dL (12.0-16.0)
[2021-06-17] MEDS: METOPROLOL TARTRATE 25MG TABLET PO SCH (21:17)
[2021-06-17] MEDS: METOCLOPRAMIDE HCL 10MG/2ML VIAL IV SCH (23:49)
[2021-06-17] MEDS: SUCRALFATE 1 G/10 ML UDC PO SCH (23:49)
[2021-06-18] VITALS (13 sets, daily range): BP systolic 103–148; BP diastolic 55–90
[2021-06-18] MEDS: DEXT 5%/0.9% NACL 1,000 ML IV SCH ×3 (00:04→21:25)
[2021-06-18] MEDS: SUCRALFATE 1 G/10 ML UDC PO SCH ×4 (05:31→23:24)
[2021-06-18] MEDS: METOCLOPRAMIDE HCL 10MG/2ML VIAL IV SCH ×4 (05:31→23:24)
[2021-06-18] MEDS: MULTIVITAMINS,THER W-MINERALS TABLET PO SCH (10:02)
[2021-06-18] MEDS: ASCORBIC ACID 500 MG TABLET PO SCH (10:03)
[2021-06-18] MEDS: POTASSIUM CHLORIDE 20MEQ/PACKET PO SCH ×2 (10:03→18:16)
[2021-06-18] MEDS: ZINC SULFATE 220 MG ( 50 ) CAPSULE GT SCH (10:03)
[2021-06-18] MEDS: AMLODIPINE 5MG TABLET PO SCH (10:04)
[2021-06-18] MEDS: METOPROLOL TARTRATE 25MG TABLET PO SCH ×2 (10:04→21:35)
[2021-06-18] MEDS: POLYETHYLENE GLYCOL 3350 (17GM) 1 DOSE PACK PO SCH (10:05)
[2021-06-18] MEDS: ERGOCALCIFEROL 50000UNITS CAPSULE PO SCH (10:05)
[2021-06-18] MEDS: MEGESTROL ACETATE 400 MG/10 ML UDC PO SCH (10:05)
[2021-06-18] MEDS: DOCUSATE SODIUM SUGAR FREE 100MG/10ML UDC NG SCH (10:05)
[2021-06-18 12:57] LABS: BASOPHILS % 0.1 % (0.0-2.0); EOSINOPHILS % 0.3 % (0.0-5.0); HEMOGLOBIN. 9.5 g/dL (12.0-16.0); MEAN CORPUSCULAR HEMOGLOBIN 28.3 pg (28.0-32.0); MEAN CORPUSCULAR VOLUME 83.6 fL (81.0-99.0); MEAN PLATELET VOLUME 7.7 fl (7.4-10.4); NEUTROPHILS % 81.6 % (40.0-76.0); PLATELET 142 x1000/uL (130-400); RED BLOOD CELL COUNT 3.35 mill/uL (4.2-5.4); RED CELL DISTRIBUTION WIDTH 14.5 % (11.6-14.6)
[2021-06-18 13:05] LABS: CHLORIDE 124 mEq/L (98-107)
[2021-06-19] VITALS (13 sets, daily range): BP systolic 124–156; BP diastolic 64–91
[2021-06-19] MEDS: DEXT 5%/0.9% NACL 1,000 ML IV SCH ×2 (01:54→16:50)
[2021-06-19] MEDS: METOCLOPRAMIDE HCL 10MG/2ML VIAL IV SCH ×3 (05:11→17:54)
[2021-06-19] MEDS: SUCRALFATE 1 G/10 ML UDC PO SCH ×3 (05:11→17:55)
[2021-06-19 06:41] LABS: CHLORIDE 122 mEq/L (98-107)
[2021-06-19 06:46] LABS: BASOPHILS % 0.2 % (0.0-2.0); EOSINOPHILS % 0.2 % (0.0-5.0); HEMATOCRIT. 28.7 % (36.0-48.0); HEMOGLOBIN. 9.7 g/dL (12.0-16.0); LYMPHOCYTES % 14.5 % (20.0-50.0); MEAN CORPUSCULAR HEMOGLOBIN 27.9 pg (28.0-32.0); MEAN CORPUSCULAR VOLUME 82.6 fL (81.0-99.0); MEAN PLATELET VOLUME 7.9 fl (7.4-10.4); MONOCYTES % 8.7 % (2.0-8.0); NEUTROPHILS % 76.4 % (40.0-76.0); PLATELET 144 x1000/uL (130-400); RED BLOOD CELL COUNT 3.48 mill/uL (4.2-5.4); RED CELL DISTRIBUTION WIDTH 14.7 % (11.6-14.6)
[2021-06-19] MEDS: ASCORBIC ACID 500 MG TABLET PO SCH (08:25)
[2021-06-19] MEDS: METOPROLOL TARTRATE 25MG TABLET PO SCH ×2 (08:25→21:06)
[2021-06-19] MEDS: POLYETHYLENE GLYCOL 3350 (17GM) 1 DOSE PACK PO SCH (08:25)
[2021-06-19] MEDS: DOCUSATE SODIUM SUGAR FREE 100MG/10ML UDC NG SCH (08:25)
[2021-06-19] MEDS: MEGESTROL ACETATE 400 MG/10 ML UDC PO SCH (08:25)
[2021-06-19] MEDS: ZINC SULFATE 220 MG ( 50 ) CAPSULE GT SCH (08:25)
[2021-06-19] MEDS: MULTIVITAMINS,THER W-MINERALS TABLET PO SCH (08:35)
[2021-06-19] MEDS: AMLODIPINE 5MG TABLET PO SCH (08:35)
[2021-06-19 17:46] LABS: HEMATOCRIT 28.5 % (36.0-48.0); HEMOGLOBIN 9.7 g/dL (12.0-16.0)
[2021-06-20] VITALS (12 sets, daily range): BP systolic 135–159; BP diastolic 70–99
[2021-06-20] MEDS: METOCLOPRAMIDE HCL 10MG/2ML VIAL IV SCH ×5 (00:11→23:18)
[2021-06-20] MEDS: SUCRALFATE 1 G/10 ML UDC PO SCH ×5 (00:11→23:17)
[2021-06-20] MEDS: DEXT 5%/0.9% NACL 1,000 ML IV SCH (05:10)
[2021-06-20] MEDS: DOCUSATE SODIUM SUGAR FREE 100MG/10ML UDC NG SCH (08:16)
[2021-06-20] MEDS: AMLODIPINE 5MG TABLET PO SCH (08:16)
[2021-06-20] MEDS: ASCORBIC ACID 500 MG TABLET PO SCH (08:16)
[2021-06-20] MEDS: ZINC SULFATE 220 MG ( 50 ) CAPSULE GT SCH (08:16)
[2021-06-20] MEDS: MEGESTROL ACETATE 400 MG/10 ML UDC PO SCH (08:16)
[2021-06-20] MEDS: METOPROLOL TARTRATE 25MG TABLET PO SCH ×2 (08:16→20:33)
[2021-06-20] MEDS: MULTIVITAMINS,THER W-MINERALS TABLET PO SCH (08:17)
[2021-06-20] MEDS: POLYETHYLENE GLYCOL 3350 (17GM) 1 DOSE PACK PO SCH (08:17)
[2021-06-20 13:05] LABS: BASOPHILS % 0.1 % (0.0-2.0); EOSINOPHILS % 0.2 % (0.0-5.0); HEMATOCRIT. 28.3 % (36.0-48.0); HEMOGLOBIN. 9.4 g/dL (12.0-16.0); LYMPHOCYTES % 9.7 % (20.0-50.0); MEAN CORPUSCULAR HEMOGLOBIN 27.8 pg (28.0-32.0); MEAN CORPUSCULAR VOLUME 83.8 fL (81.0-99.0); MEAN PLATELET VOLUME 7.5 fl (7.4-10.4); MONOCYTES % 6.8 % (2.0-8.0); NEUTROPHILS % 83.2 % (40.0-76.0); PLATELET 133 x1000/uL (130-400); RED BLOOD CELL COUNT 3.37 mill/uL (4.2-5.4); RED CELL DISTRIBUTION WIDTH 14.5 % (11.6-14.6)
[2021-06-20 16:41] LABS: HEMOGLOBIN 9.1 g/dL (12.0-16.0)
[2021-06-21] VITALS (15 sets, daily range): BP systolic 104–149; BP diastolic 53–78
[2021-06-21] MEDS: METOCLOPRAMIDE HCL 10MG/2ML VIAL IV SCH ×4 (05:18→23:31)
[2021-06-21] MEDS: SUCRALFATE 1 G/10 ML UDC PO SCH ×4 (05:18→23:31)
[2021-06-21 08:58] LABS: BASOPHILS % 0.2 % (0.0-2.0); EOSINOPHILS % 0.1 % (0.0-5.0); HEMATOCRIT. 26.9 % (36.0-48.0); HEMOGLOBIN. 9.1 g/dL (12.0-16.0); LYMPHOCYTES % 14.8 % (20.0-50.0); MEAN CORPUSCULAR VOLUME 82.7 fL (81.0-99.0); MEAN PLATELET VOLUME 7.6 fl (7.4-10.4); MONOCYTES % 9.6 % (2.0-8.0); NEUTROPHILS % 75.3 % (40.0-76.0); PLATELET 131 x1000/uL (130-400); RED BLOOD CELL COUNT 3.25 mill/uL (4.2-5.4); RED CELL DISTRIBUTION WIDTH 14.4 % (11.6-14.6)
[2021-06-21] MEDS: ZINC SULFATE 220 MG ( 50 ) CAPSULE GT SCH (09:26)
[2021-06-21] MEDS: ERGOCALCIFEROL 50000UNITS CAPSULE PO SCH (09:26)
[2021-06-21] MEDS: ASCORBIC ACID 500 MG TABLET PO SCH (09:27)
[2021-06-21] MEDS: METOPROLOL TARTRATE 25MG TABLET PO SCH ×2 (09:27→20:39)
[2021-06-21] MEDS: MULTIVITAMINS,THER W-MINERALS TABLET PO SCH (09:27)
[2021-06-21] MEDS: POLYETHYLENE GLYCOL 3350 (17GM) 1 DOSE PACK PO SCH (09:28)
[2021-06-21] MEDS: DOCUSATE SODIUM SUGAR FREE 100MG/10ML UDC NG SCH (09:28)
[2021-06-21] MEDS: AMLODIPINE 5MG TABLET PO SCH (09:28)
[2021-06-21] MEDS: MEGESTROL ACETATE 400 MG/10 ML UDC PO SCH (09:30)
[2021-06-21 17:32] LABS: HEMATOCRIT 26.4 % (36.0-48.0); HEMOGLOBIN 8.9 g/dL (12.0-16.0)
[2021-06-22] VITALS (9 sets, daily range): BP systolic 99–144; BP diastolic 58–81
[2021-06-22] MEDS: METOCLOPRAMIDE HCL 10MG/2ML VIAL IV SCH ×3 (05:26→17:07)
[2021-06-22] MEDS: SUCRALFATE 1 G/10 ML UDC PO SCH ×3 (05:26→17:07)
[2021-06-22 05:44] LABS: BASOPHILS % 0.1 % (0.0-2.0); EOSINOPHILS % 0.3 % (0.0-5.0); HEMATOCRIT. 28.3 % (36.0-48.0); HEMOGLOBIN. 9.3 g/dL (12.0-16.0); LYMPHOCYTES % 14.3 % (20.0-50.0); MEAN CORPUSCULAR HEMOGLOBIN 27.8 pg (28.0-32.0); MEAN PLATELET VOLUME 7.9 fl (7.4-10.4); MONOCYTES % 9.5 % (2.0-8.0); NEUTROPHILS % 75.8 % (40.0-76.0); PLATELET 131 x1000/uL (130-400); RED BLOOD CELL COUNT 3.37 mill/uL (4.2-5.4); RED CELL DISTRIBUTION WIDTH 14.3 % (11.6-14.6)
[2021-06-22] MEDS: MULTIVITAMINS,THER W-MINERALS TABLET PO SCH (09:50)
[2021-06-22] MEDS: AMLODIPINE 5MG TABLET PO SCH (09:50)
[2021-06-22] MEDS: POLYETHYLENE GLYCOL 3350 (17GM) 1 DOSE PACK PO SCH (09:50)
[2021-06-22] MEDS: DOCUSATE SODIUM SUGAR FREE 100MG/10ML UDC NG SCH (09:50)
[2021-06-22] MEDS: METOPROLOL TARTRATE 25MG TABLET PO SCH ×2 (09:51→21:02)
[2021-06-22] MEDS: ZINC SULFATE 220 MG ( 50 ) CAPSULE GT SCH (09:51)
[2021-06-22] MEDS: ASCORBIC ACID 500 MG TABLET PO SCH (09:51)
[2021-06-22] MEDS: MEGESTROL ACETATE 400 MG/10 ML UDC PO SCH (09:52)
[2021-06-22 18:23] LABS: HEMATOCRIT 28.9 % (36.0-48.0); HEMOGLOBIN 9.7 g/dL (12.0-16.0)
[2021-06-23 00:31] VITALS: BP 118/65
[2021-06-23 05:28] VITALS: BP 163/77
[2021-06-23] MEDS: METOCLOPRAMIDE HCL 10MG/2ML VIAL IV SCH ×3 (06:53→18:01)
[2021-06-23] MEDS: SUCRALFATE 1 G/10 ML UDC PO SCH ×3 (06:53→18:01)
[2021-06-23 07:55] LABS: BASOPHILS % 0.2 % (0.0-2.0); EOSINOPHILS % 0.1 % (0.0-5.0); HEMATOCRIT. 30.8 % (36.0-48.0); HEMOGLOBIN. 10.2 g/dL (12.0-16.0); LYMPHOCYTES % 11.1 % (20.0-50.0); MEAN CORPUSCULAR HEMOGLOBIN 27.5 pg (28.0-32.0); MEAN CORPUSCULAR VOLUME 83.4 fL (81.0-99.0); NEUTROPHILS % 77.6 % (40.0-76.0); PLATELET 164 x1000/uL (130-400); RED BLOOD CELL COUNT 3.69 mill/uL (4.2-5.4); RED CELL DISTRIBUTION WIDTH 14.5 % (11.6-14.6)
[2021-06-23 08:00] VITALS: BP 145/81
[2021-06-23] MEDS: POLYETHYLENE GLYCOL 3350 (17GM) 1 DOSE PACK PO SCH (09:00)
[2021-06-23] MEDS: DOCUSATE SODIUM SUGAR FREE 100MG/10ML UDC NG SCH (09:43)
[2021-06-23] MEDS: MEGESTROL ACETATE 400 MG/10 ML UDC PO SCH (09:43)
[2021-06-23] MEDS: ZINC SULFATE 220 MG ( 50 ) CAPSULE GT SCH (09:44)
[2021-06-23] MEDS: METOPROLOL TARTRATE 25MG TABLET PO SCH ×2 (09:44→22:38)
[2021-06-23] MEDS: ASCORBIC ACID 500 MG TABLET PO SCH (09:45)
[2021-06-23] MEDS: MULTIVITAMINS,THER W-MINERALS TABLET PO SCH (09:45)
[2021-06-23] MEDS: AMLODIPINE 5MG TABLET PO SCH ×2 (09:45→22:39)
[2021-06-23 12:00] VITALS: BP 142/74
[2021-06-23] MEDS ORDERED: AMLODIPINE 5MG TABLET PO SCH (13:00)
[2021-06-23] MEDS ORDERED: CLONIDINE 0.1MG TABLET PO PRN (13:00)
[2021-06-23] MEDS: CEFTRIAXONE 1,000 MG in DEXTROSE 5% WATER 50 ML IV SCH (13:21)
[2021-06-23 17:18] LABS: CHLORIDE 110 mEq/L (98-107)
[2021-06-23 17:45] VITALS: BP 111/74
[2021-06-23 20:00] VITALS: BP 168/84
[2021-06-24] VITALS: BP 145/66
[2021-06-24] MEDS: METOCLOPRAMIDE HCL 10MG/2ML VIAL IV SCH ×4 (01:04→17:57)
[2021-06-24] MEDS: SUCRALFATE 1 G/10 ML UDC PO SCH ×4 (01:04→17:57)
[2021-06-24 04:00] VITALS: BP 109/73
[2021-06-24 06:41] LABS: HEMOGLOBIN. 9.7 g/dL (12.0-16.0); MEAN CORPUSCULAR HEMOGLOBIN 27.6 pg (28.0-32.0); MEAN CORPUSCULAR VOLUME 85.1 fL (81.0-99.0); MEAN PLATELET VOLUME 8.3 fl (7.4-10.4); PLATELET 184 x1000/uL (130-400); RED BLOOD CELL COUNT 3.53 mill/uL (4.2-5.4); RED CELL DISTRIBUTION WIDTH 14.7 % (11.6-14.6)
[2021-06-24 08:00] VITALS: BP 91/57
[2021-06-24] MEDS: AMLODIPINE 5MG TABLET PO SCH ×2 (09:00→21:00)
[2021-06-24] MEDS: POLYETHYLENE GLYCOL 3350 (17GM) 1 DOSE PACK PO SCH (09:00)
[2021-06-24] MEDS: METOPROLOL TARTRATE 25MG TABLET PO SCH ×2 (09:00→21:00)
[2021-06-24] MEDS: MEGESTROL ACETATE 400 MG/10 ML UDC PO SCH (09:31)
[2021-06-24] MEDS: DOCUSATE SODIUM SUGAR FREE 100MG/10ML UDC NG SCH (09:32)
[2021-06-24] MEDS: ZINC SULFATE 220 MG ( 50 ) CAPSULE GT SCH (09:32)
[2021-06-24] MEDS: ASCORBIC ACID 500 MG TABLET PO SCH (09:32)
[2021-06-24] MEDS: MULTIVITAMINS,THER W-MINERALS TABLET PO SCH (09:32)
[2021-06-24 09:49] LABS: CLARITY URINE CLEAR (CLEAR); COLOR URINE YELLOW (YELLOW); KETONES URINE NEGATIVE (NEGATIVE); LEUKOCYTE ESTERASE URINE 1+ (NEGATIVE); NITRITE URINE NEGATIVE (NEGATIVE); OCCULT BLOOD URINE NEGATIVE (NEGATIVE); PH URINE 7.5 (4.5-8.0); PROTEIN URINE NEGATIVE (NEGATIVE); SPECIFIC GRAVITY URINE 1.016 (1.005-1.030)
[2021-06-24 12:00] VITALS: BP 90/51
[2021-06-24] MEDS: CEFTRIAXONE 1,000 MG in DEXTROSE 5% WATER 50 ML IV SCH (13:16)
[2021-06-24 16:00] VITALS: BP 103/58
[2021-06-24] MEDS ORDERED: SODIUM CHLORIDE 0.9% 250 ML IV ONE (17:45)
[2021-06-24 20:00] VITALS: BP 109/64
[2021-06-24 22:25] LABS: PLATELET ESTIMATE NORMAL
[2021-06-25] VITALS: BP 147/75
[2021-06-25] MEDS: SUCRALFATE 1 G/10 ML UDC PO SCH ×4 (00:51→18:45)
[2021-06-25] MEDS: METOCLOPRAMIDE HCL 10MG/2ML VIAL IV SCH ×4 (00:52→18:45)
[2021-06-25 04:00] VITALS: BP 128/68
[2021-06-25] MEDS: SODIUM CHLORIDE 0.9% 1,000 ML IV SCH ×2 (07:28→20:35)
[2021-06-25] MEDS: AMLODIPINE 5MG TABLET PO SCH ×2 (09:00→22:31)
[2021-06-25] MEDS: METOPROLOL TARTRATE 25MG TABLET PO SCH ×2 (09:00→22:31)
[2021-06-25] MEDS: ERGOCALCIFEROL 50000UNITS CAPSULE PO SCH (10:14)
[2021-06-25] MEDS: ASCORBIC ACID 500 MG TABLET PO SCH (10:15)
[2021-06-25] MEDS: ZINC SULFATE 220 MG ( 50 ) CAPSULE GT SCH (10:15)
[2021-06-25] MEDS: MULTIVITAMINS,THER W-MINERALS TABLET PO SCH (10:15)
[2021-06-25] MEDS: POLYETHYLENE GLYCOL 3350 (17GM) 1 DOSE PACK PO SCH (10:16)
[2021-06-25] MEDS: DOCUSATE SODIUM SUGAR FREE 100MG/10ML UDC NG SCH (10:16)
[2021-06-25] MEDS: MEGESTROL ACETATE 400 MG/10 ML UDC PO SCH (10:16)
[2021-06-25] MEDS: CEFTRIAXONE 1,000 MG in DEXTROSE 5% WATER 50 ML IV SCH (12:45)
[2021-06-25] MEDS ORDERED: SODIUM CHLORIDE 0.9% 250 ML IV SCH (18:30)
[2021-06-25 20:00] VITALS: BP 138/87
[2021-06-26] VITALS (21 sets, daily range): BP systolic 33–144; BP diastolic 19–82
[2021-06-26] MEDS: METOCLOPRAMIDE HCL 10MG/2ML VIAL IV SCH ×5 (02:19→23:19)
[2021-06-26] MEDS: SUCRALFATE 1 G/10 ML UDC PO SCH ×5 (02:19→23:19)
[2021-06-26] MEDS: AMLODIPINE 5MG TABLET PO SCH ×2 (09:00→21:00)
[2021-06-26] MEDS: METOPROLOL TARTRATE 25MG TABLET PO SCH ×2 (09:00→21:00)
[2021-06-26] MEDS: DOCUSATE SODIUM SUGAR FREE 100MG/10ML UDC NG SCH (09:30)
[2021-06-26] MEDS: ASCORBIC ACID 500 MG TABLET PO SCH (09:31)
[2021-06-26] MEDS: MEGESTROL ACETATE 400 MG/10 ML UDC PO SCH (09:31)
[2021-06-26] MEDS: ZINC SULFATE 220 MG ( 50 ) CAPSULE GT SCH (09:31)
[2021-06-26] MEDS: POLYETHYLENE GLYCOL 3350 (17GM) 1 DOSE PACK PO SCH (09:31)
[2021-06-26] MEDS: MULTIVITAMINS,THER W-MINERALS TABLET PO SCH (09:31)
[2021-06-26] MEDS: SODIUM CHLORIDE 0.9% 1,000 ML IV SCH ×2 (09:33→23:19)
[2021-06-26] MEDS: CEFTRIAXONE 1,000 MG in DEXTROSE 5% WATER 50 ML IV SCH (12:08)
[2021-06-26 17:04] LABS: BASOPHILS % 0.2 % (0.0-2.0); EOSINOPHILS % 0.1 % (0.0-5.0); LYMPHOCYTES % 11.7 % (20.0-50.0); MEAN CORPUSCULAR HEMOGLOBIN 29.2 pg (28.0-32.0); MEAN PLATELET VOLUME 8.1 fl (7.4-10.4); MONOCYTES % 10.7 % (2.0-8.0); NEUTROPHILS % 77.3 % (40.0-76.0); PLATELET 224 x1000/uL (130-400); RED BLOOD CELL COUNT 2.07 mill/uL (4.2-5.4); RED CELL DISTRIBUTION WIDTH 15.7 % (11.6-14.6)
[2021-06-26 17:48] LABS: CHLORIDE 113 mEq/L (98-107)
[2021-06-27] VITALS (41 sets, daily range): BP systolic 93–140; BP diastolic 57–106
[2021-06-27 02:53] LABS: HEMATOCRIT 17.5 % (36.0-48.0); HEMOGLOBIN 5.9 g/dL (12.0-16.0)
[2021-06-27] MEDS: METOCLOPRAMIDE HCL 10MG/2ML VIAL IV SCH ×3 (06:10→17:44)
[2021-06-27] MEDS: SUCRALFATE 1 G/10 ML UDC PO SCH ×3 (06:10→17:32)
[2021-06-27] MEDS: DOCUSATE SODIUM SUGAR FREE 100MG/10ML UDC NG SCH (08:22)
[2021-06-27] MEDS: METOPROLOL TARTRATE 25MG TABLET PO SCH ×2 (08:22→21:31)
[2021-06-27] MEDS: ZINC SULFATE 220 MG ( 50 ) CAPSULE GT SCH (08:22)
[2021-06-27] MEDS: AMLODIPINE 5MG TABLET PO SCH ×2 (08:23→21:32)
[2021-06-27] MEDS: MULTIVITAMINS,THER W-MINERALS TABLET PO SCH (08:23)
[2021-06-27] MEDS: POLYETHYLENE GLYCOL 3350 (17GM) 1 DOSE PACK PO SCH (08:23)
[2021-06-27] MEDS: MEGESTROL ACETATE 400 MG/10 ML UDC PO SCH (08:23)
[2021-06-27] MEDS: ASCORBIC ACID 500 MG TABLET PO SCH (08:23)
[2021-06-27] MEDS: DEXT 5%/0.9% NACL 1,000 ML IV SCH ×2 (09:04→21:32)
[2021-06-27 11:13] LABS: HEMATOCRIT. 22.8 % (36.0-48.0); HEMOGLOBIN. 7.6 g/dL (12.0-16.0); MEAN CORPUSCULAR HEMOGLOBIN 30.1 pg (28.0-32.0); MEAN CORPUSCULAR VOLUME 90.2 fL (81.0-99.0); MEAN PLATELET VOLUME 8.3 fl (7.4-10.4); PLATELET 170 x1000/uL (130-400); RED BLOOD CELL COUNT 2.53 mill/uL (4.2-5.4); RED CELL DISTRIBUTION WIDTH 14.8 % (11.6-14.6)
[2021-06-27 11:21] LABS: CHLORIDE 116 mEq/L (98-107)
[2021-06-27 11:22] LABS: INR 1.3; PROTHROMBIN TIME 13.3 sec (9.6-11.0)
[2021-06-27 11:47] LABS: NUCLEATED RED BLOOD CELLS 1 /100 WBC; PLATELET ESTIMATE NORMAL
[2021-06-27] MEDS: CEFTRIAXONE 1,000 MG in DEXTROSE 5% WATER 50 ML IV SCH (13:16)
[2021-06-27 22:49] LABS: HEMATOCRIT 31.6 % (36.0-48.0); HEMOGLOBIN 10.5 g/dL (12.0-16.0)
[2021-06-28] VITALS (12 sets, daily range): BP systolic 104–166; BP diastolic 56–91
[2021-06-28] MEDS: SUCRALFATE 1 G/10 ML UDC PO SCH ×4 (01:12→18:00)
[2021-06-28] MEDS: METOCLOPRAMIDE HCL 10MG/2ML VIAL IV SCH ×4 (01:12→18:01)
[2021-06-28 07:46] LABS: BASOPHILS % 0.3 % (0.0-2.0); EOSINOPHILS % 0.2 % (0.0-5.0); HEMATOCRIT. 31.5 % (36.0-48.0); HEMOGLOBIN. 10.5 g/dL (12.0-16.0); LYMPHOCYTES % 13.8 % (20.0-50.0); MEAN CORPUSCULAR HEMOGLOBIN 29.4 pg (28.0-32.0); MEAN CORPUSCULAR VOLUME 88.4 fL (81.0-99.0); MEAN PLATELET VOLUME 8.1 fl (7.4-10.4); MONOCYTES % 9.7 % (2.0-8.0); PLATELET 222 x1000/uL (130-400); RED BLOOD CELL COUNT 3.56 mill/uL (4.2-5.4); RED CELL DISTRIBUTION WIDTH 15.6 % (11.6-14.6)
[2021-06-28 08:12] LABS: CHLORIDE 113 mEq/L (98-107)
[2021-06-28] MEDS: METOPROLOL TARTRATE 25MG TABLET PO SCH ×2 (09:00→21:00)
[2021-06-28] MEDS: AMLODIPINE 5MG TABLET PO SCH ×2 (09:00→21:51)
[2021-06-28] MEDS: ASCORBIC ACID 500 MG TABLET PO SCH (09:00)
[2021-06-28] MEDS: ZINC SULFATE 220 MG ( 50 ) CAPSULE GT SCH (09:00)
[2021-06-28] MEDS: MEGESTROL ACETATE 400 MG/10 ML UDC PO SCH (09:00)
[2021-06-28] MEDS: POLYETHYLENE GLYCOL 3350 (17GM) 1 DOSE PACK PO SCH (09:00)
[2021-06-28] MEDS: DOCUSATE SODIUM SUGAR FREE 100MG/10ML UDC NG SCH (09:00)
[2021-06-28] MEDS: MULTIVITAMINS,THER W-MINERALS TABLET PO SCH (09:00)
[2021-06-28] MEDS: DEXT 5%/0.9% NACL 1,000 ML IV SCH (10:54)
[2021-06-28 15:57] LABS: HEMATOCRIT 29.6 % (36.0-48.0); HEMOGLOBIN 9.9 g/dL (12.0-16.0)
[2021-06-28] MEDS ORDERED: MIDAZOLAM HCL 5 MG/5 ML VIAL IV PRN (16:56)
[2021-06-28] MEDS ORDERED: MIDAZOLAM HCL 5 MG/5 ML VIAL ONE (17:04)
[2021-06-28] MEDS ORDERED: FENTANYL CITRATE/PF 50MCG/ML 2ML VIAL ONE (17:04)
[2021-06-28] MEDS ORDERED: VANCOMYCIN 750 MG PREMIX 150 ML IV NR (17:30)
[2021-06-28] MEDS ORDERED: DIATR MEGLU/DIATRIZOATE SOLN 30ML PO SCH (17:30)
[2021-06-29] VITALS (10 sets, daily range): BP systolic 114–147; BP diastolic 60–113
[2021-06-29 00:02] LABS: HEMATOCRIT 31.6 % (36.0-48.0); HEMOGLOBIN 10.7 g/dL (12.0-16.0)
[2021-06-29] MEDS: SUCRALFATE 1 G/10 ML UDC PO SCH ×5 (00:41→23:35)
[2021-06-29] MEDS: DEXT 5%/0.9% NACL 1,000 ML IV SCH ×2 (00:42→12:48)
[2021-06-29] MEDS: METOCLOPRAMIDE HCL 10MG/2ML VIAL IV SCH ×5 (00:42→23:35)
[2021-06-29 05:31] LABS: CHLORIDE 113 mEq/L (98-107)
[2021-06-29 06:16] LABS: BASOPHILS % 0.1 % (0.0-2.0); EOSINOPHILS % 0.3 % (0.0-5.0); HEMATOCRIT. 28.4 % (36.0-48.0); HEMOGLOBIN. 9.6 g/dL (12.0-16.0); LYMPHOCYTES % 12.1 % (20.0-50.0); MEAN CORPUSCULAR HEMOGLOBIN 30.3 pg (28.0-32.0); MEAN CORPUSCULAR VOLUME 89.7 fL (81.0-99.0); MEAN PLATELET VOLUME 7.6 fl (7.4-10.4); MONOCYTES % 11.8 % (2.0-8.0); NEUTROPHILS % 75.7 % (40.0-76.0); PLATELET 252 x1000/uL (130-400); RED BLOOD CELL COUNT 3.16 mill/uL (4.2-5.4); RED CELL DISTRIBUTION WIDTH 16.2 % (11.6-14.6)
[2021-06-29] MEDS: AMLODIPINE 5MG TABLET PO SCH ×2 (08:04→20:51)
[2021-06-29] MEDS: ASCORBIC ACID 500 MG TABLET PO SCH (08:04)
[2021-06-29] MEDS: METOPROLOL TARTRATE 25MG TABLET PO SCH ×2 (08:04→20:51)
[2021-06-29] MEDS: ZINC SULFATE 220 MG ( 50 ) CAPSULE GT SCH (08:04)
[2021-06-29] MEDS: MULTIVITAMINS,THER W-MINERALS TABLET PO SCH (08:04)
[2021-06-29] MEDS: MEGESTROL ACETATE 400 MG/10 ML UDC PO SCH (08:04)
[2021-06-29] MEDS: DOCUSATE SODIUM SUGAR FREE 100MG/10ML UDC NG SCH (08:04)
[2021-06-29] MEDS: POLYETHYLENE GLYCOL 3350 (17GM) 1 DOSE PACK PO SCH (08:05)
[2021-06-29] MEDS ORDERED: POTASSIUM CHLORIDE 20MEQ TABLET SR PO SCH (11:00)
[2021-06-29] MEDS: VANCOMYCIN 500 MG PREMIX 100 ML IV SCH (12:47)
[2021-06-29 17:21] LABS: HEMATOCRIT 28.5 % (36.0-48.0); HEMOGLOBIN 9.9 g/dL (12.0-16.0)
[2021-06-30] VITALS (7 sets, daily range): BP systolic 120–145; BP diastolic 60–86
[2021-06-30] MEDS: DEXT 5%/0.9% NACL 1,000 ML IV SCH ×2 (02:56→15:45)
[2021-06-30] MEDS: SUCRALFATE 1 G/10 ML UDC PO SCH ×3 (05:41→18:55)
[2021-06-30] MEDS: METOCLOPRAMIDE HCL 10MG/2ML VIAL IV SCH ×3 (05:41→18:55)
[2021-06-30] MEDS: VANCOMYCIN 500 MG PREMIX 100 ML IV SCH ×2 (05:42→18:55)
[2021-06-30] MEDS: MEGESTROL ACETATE 400 MG/10 ML UDC PO SCH (08:54)
[2021-06-30] MEDS: DOCUSATE SODIUM SUGAR FREE 100MG/10ML UDC NG SCH (08:54)
[2021-06-30] MEDS: POLYETHYLENE GLYCOL 3350 (17GM) 1 DOSE PACK PO SCH (08:54)
[2021-06-30] MEDS: METOPROLOL TARTRATE 25MG TABLET PO SCH ×2 (08:55→20:29)
[2021-06-30] MEDS: AMLODIPINE 5MG TABLET PO SCH ×2 (08:55→20:29)
[2021-06-30] MEDS: ZINC SULFATE 220 MG ( 50 ) CAPSULE GT SCH (08:55)
[2021-06-30] MEDS: MULTIVITAMINS,THER W-MINERALS TABLET PO SCH (08:55)
[2021-06-30] MEDS: ASCORBIC ACID 500 MG TABLET PO SCH (08:56)
[2021-07-01] VITALS: BP 157/75
[2021-07-01] MEDS: SUCRALFATE 1 G/10 ML UDC PO SCH ×4 (01:05→17:21)
[2021-07-01] MEDS: METOCLOPRAMIDE HCL 10MG/2ML VIAL IV SCH ×4 (01:05→17:21)
[2021-07-01 04:00] VITALS: BP 139/98
[2021-07-01] MEDS: VANCOMYCIN 500 MG PREMIX 100 ML IV SCH ×2 (05:15→17:21)
[2021-07-01] MEDS: DEXT 5%/0.9% NACL 1,000 ML IV SCH ×2 (05:15→17:22)
[2021-07-01 08:00] VITALS: BP 128/75
[2021-07-01] MEDS: DOCUSATE SODIUM SUGAR FREE 100MG/10ML UDC NG SCH (09:00)
[2021-07-01] MEDS: POLYETHYLENE GLYCOL 3350 (17GM) 1 DOSE PACK PO SCH (09:00)
[2021-07-01] MEDS: MEGESTROL ACETATE 400 MG/10 ML UDC PO SCH (09:24)
[2021-07-01] MEDS: METOPROLOL TARTRATE 25MG TABLET PO SCH ×2 (09:24→21:17)
[2021-07-01] MEDS: MULTIVITAMINS,THER W-MINERALS TABLET PO SCH (09:24)
[2021-07-01] MEDS: ZINC SULFATE 220 MG ( 50 ) CAPSULE GT SCH (09:24)
[2021-07-01] MEDS: ASCORBIC ACID 500 MG TABLET PO SCH (09:25)
[2021-07-01] MEDS: AMLODIPINE 5MG TABLET PO SCH ×2 (09:25→21:17)
[2021-07-01 12:00] VITALS: BP 121/82
[2021-07-01 16:00] VITALS: BP 155/78
[2021-07-01 20:00] VITALS: BP 147/81
[2021-07-01] MEDS: SULFAMETHOXAZOLE/TRIMETHOPRIM 800/160MG TABLET PO SCH (21:31)
[2021-07-02] VITALS (7 sets, daily range): BP systolic 121–148; BP diastolic 66–75
[2021-07-02] MEDS: METOCLOPRAMIDE HCL 10MG/2ML VIAL IV SCH ×4 (00:21→17:24)
[2021-07-02] MEDS: SUCRALFATE 1 G/10 ML UDC PO SCH ×4 (00:21→17:24)
[2021-07-02 03:00] LABS: BASOPHILS % 0.2 % (0.0-2.0); EOSINOPHILS % 0.6 % (0.0-5.0); HEMATOCRIT. 31.6 % (36.0-48.0); HEMOGLOBIN. 10.3 g/dL (12.0-16.0); LYMPHOCYTES % 10.6 % (20.0-50.0); MEAN CORPUSCULAR HEMOGLOBIN 29.6 pg (28.0-32.0); MEAN CORPUSCULAR VOLUME 90.6 fL (81.0-99.0); MEAN PLATELET VOLUME 7.3 fl (7.4-10.4); MONOCYTES % 12.4 % (2.0-8.0); NEUTROPHILS % 76.2 % (40.0-76.0); PLATELET 316 x1000/uL (130-400); RED BLOOD CELL COUNT 3.49 mill/uL (4.2-5.4); RED CELL DISTRIBUTION WIDTH 17.7 % (11.6-14.6)
[2021-07-02 03:03] LABS: CHLORIDE 113 mEq/L (98-107)
[2021-07-02] MEDS: DEXT 5%/0.9% NACL 1,000 ML IV SCH ×2 (09:45→21:30)
[2021-07-02] MEDS: SULFAMETHOXAZOLE/TRIMETHOPRIM 800/160MG TABLET PO SCH ×2 (09:45→21:30)
[2021-07-02] MEDS: ERGOCALCIFEROL 50000UNITS CAPSULE PO SCH (09:46)
[2021-07-02] MEDS: ASCORBIC ACID 500 MG TABLET PO SCH (09:46)
[2021-07-02] MEDS: MULTIVITAMINS,THER W-MINERALS TABLET PO SCH (09:46)
[2021-07-02] MEDS: ZINC SULFATE 220 MG ( 50 ) CAPSULE GT SCH (09:46)
[2021-07-02] MEDS: METOPROLOL TARTRATE 25MG TABLET PO SCH ×2 (09:46→21:29)
[2021-07-02] MEDS: DOCUSATE SODIUM SUGAR FREE 100MG/10ML UDC NG SCH (09:46)
[2021-07-02] MEDS: MEGESTROL ACETATE 400 MG/10 ML UDC PO SCH (09:46)
[2021-07-02] MEDS: POLYETHYLENE GLYCOL 3350 (17GM) 1 DOSE PACK PO SCH (09:47)
[2021-07-02] MEDS: AMLODIPINE 5MG TABLET PO SCH ×2 (09:47→21:28)
== END 2021-07-02 22:05 | DRG 377 ==
LOC: 5EST 17:08 → 6EST 06-22 22:07 → MICUNO 06-26 20:06 → 5EST 06-27 15:30 → 6EST 07-02 02:03
PROVIDERS: ADMIT Internal Medicine Nephrology; ATTEND Internal Medicine Nephrology
PROC: 30233N1 Transfusion of Nonautologous Red Blood Cells into Peripheral Vein, Percutaneous Approach (ICD-10-PCS; principal; 2021-06-17)
PROC: 0DJ08ZZ Inspection of Upper Intestinal Tract, Via Natural or Artificial Opening Endoscopic (ICD-10-PCS; 2021-06-28)
DX: K92.2 Gastrointestinal hemorrhage, unspecified (principal); G82.50 Quadriplegia, unspecified; G93.41 Metabolic encephalopathy; N17.9 Acute kidney failure, unspecified; E87.0 Hyperosmolality and hypernatremia; N39.0 Urinary tract infection, site not specified; R47.01 Aphasia; E46 Unspecified protein-calorie malnutrition; Z68.1 Body mass index [BMI] 19.9 or less, adult; D64.9 Anemia, unspecified; E55.9 Vitamin D deficiency, unspecified; F03.90 Unspecified dementia, unspecified severity, without behavioral disturbance, psychotic disturbance, mood disturbance, and anxiety; E87.6 Hypokalemia; I95.9 Hypotension, unspecified; R26.9 Unspecified abnormalities of gait and mobility; I10 Essential (primary) hypertension; E16.2 Hypoglycemia, unspecified; N93.9 Abnormal uterine and vaginal bleeding, unspecified; R13.10 Dysphagia, unspecified; R62.7 Adult failure to thrive; Z20.822 Contact with and (suspected) exposure to COVID-19; Z82.49 Family history of ischemic heart disease and other diseases of the circulatory system; Z93.1 Gastrostomy status
CPT/HCPCS: 36415; 74176; 78278; 80048; 80053; 80202; 81003; 82962; 84145; 85014; 85018; 85025; 86850; 86900; 86920; 87077; 87186; 87426; 92610; 97161; 97164; 97165; A6261; A9560; J0696; J2250; J2765; J3010; J3370; J7030; J7040; J7042; J7060; P9016; Q9963

== ENCOUNTER 2021-12-07 06:28 | Inpatient (IN) | payer BC ==
[~2021-12-07] VITALS: Ht 154.9 cm; Wt 50.4 kg
[2021-12-07] VITALS (25 sets, daily range): BP systolic 94–141; BP diastolic 49–75
[2021-12-07] MEDS ORDERED: VANCOMYCIN 1G PREMIX 200 ML IV SCH (07:00)
[2021-12-07] MEDS ORDERED: SODIUM CHLORIDE 0.9% 2,000 ML IV ONE (07:15)
[2021-12-07] MEDS ORDERED: NOREPINEPHRINE 8MG/250ML PMX 250 ML IV ONE (07:15)
[2021-12-07] MEDS ORDERED: DEXTROSE 50% WATER 50ML SYRINGE IV ONE ×2 (07:30→08:27)
[2021-12-07] MEDS ORDERED: CEFEPIME 1,000 MG in DEXTROSE 5% WATER 50 ML IV SCH ×2 (08:00→21:00)
[2021-12-07 08:16] LABS: HEMATOCRIT. 31.1 % (36.0-48.0); HEMOGLOBIN. 10.9 g/dL (12.0-16.0); MEAN CORPUSCULAR VOLUME 85.7 fL (81.0-99.0); MEAN PLATELET VOLUME 9.1 fl (7.4-10.4); PLATELET 123 x1000/uL (130-400); RED BLOOD CELL COUNT 3.62 mill/uL (4.2-5.4); RED CELL DISTRIBUTION WIDTH 23.8 % (11.6-14.6)
[2021-12-07 08:17] LABS: CHLORIDE 100 mEq/L (98-107)
[2021-12-07 08:27] LABS: CREATINE KINASE 82 IU/L (26-192)
[2021-12-07] MEDS ORDERED: SODIUM CHLORIDE 0.9% 10ML VIAL ONE (08:27)
[2021-12-07 08:57] LABS: CLARITY URINE CLOUDY (CLEAR); COLOR URINE DARK YELLOW (YELLOW); KETONES URINE NEGATIVE (NEGATIVE); LEUKOCYTE ESTERASE URINE 2+ (NEGATIVE); NITRITE URINE NEGATIVE (NEGATIVE); OCCULT BLOOD URINE NEGATIVE (NEGATIVE); PROTEIN URINE TRACE (NEGATIVE); SPECIFIC GRAVITY URINE 1.011 (1.005-1.030)
[2021-12-07] MEDS ORDERED: CEFEPIME HCL 1000MG/VIAL INJ IM SCH (09:00)
[2021-12-07 09:40] LABS: BG BASE EXCESS -8.3 mmol/L (-2.0-2.0); BG CARBOXYHEMOGLOBIN 0.7 % (0.5-1.5); BG DEOXYHEMOGLOBIN 3.6 % (0.0-5.0); BG FRACTION INSPIRED OXYGEN 21; BG METHEMOGLOBIN 0.3 % (0.0-1.5); BG OXYGEN SATURATION 96.4 % (92.0-98.5); BG OXYHEMOGLOBIN 95.4 % (94.0-97.0); BG PCO2 24.7 mmHg (35.0-45.0); BG PH 7.402 (7.350-7.450); BG PO2 89.6 mmHg (75.0-100.0); BG SAMPLE SITE LEFT BRACHIAL; BG TOTAL HEMOGLOBIN 10.2 g/dL (12.0-18.0); BG VENT MODE ROOM AIR
[2021-12-07 10:29] LABS: PLATELET ESTIMATE SLIGHTLY DECREASED
[2021-12-07] MEDS ORDERED: SODIUM CHLORIDE 0.9% 1,000 ML IV SCH (13:00)
[2021-12-07] MEDS: VANCOMYCIN 500MG PREMIX 100 ML IV SCH (18:30)
[2021-12-07] MEDS ORDERED: VANCOMYCIN 500MG PREMIX 100 ML IV SCH (20:00)
[2021-12-07] MEDS: LACTULOSE 20G/30ML UDC PO SCH (21:05)
[2021-12-08] VITALS (16 sets, daily range): BP systolic 87–119; BP diastolic 42–72
[2021-12-08 06:37] LABS: HEMATOCRIT. 31.4 % (36.0-48.0); HEMOGLOBIN. 10.5 g/dL (12.0-16.0); MEAN CORPUSCULAR HEMOGLOBIN 28.9 pg (28.0-32.0); RED BLOOD CELL COUNT 3.65 mill/uL (4.2-5.4); RED CELL DISTRIBUTION WIDTH 24.4 % (11.6-14.6)
[2021-12-08 06:43] LABS: CHLORIDE 108 mEq/L (98-107)
[2021-12-08] MEDS: DEXTROSE 50% WATER 50ML SYRINGE IV PRN (07:25)
[2021-12-08] MEDS ORDERED: DEXTROSE 50% WATER 50ML SYRINGE IV ONE (07:34)
[2021-12-08] MEDS: VANCOMYCIN 500MG PREMIX 100 ML IV SCH (07:35)
[2021-12-08 10:18] LABS: MEAN PLATELET VOLUME 8.8 fl (7.4-10.4); PLATELET 116 x1000/uL (130-400); PLATELET ESTIMATE SLIGHTLY DECREASED
[2021-12-08] MEDS: ENOXAPARIN 30MG/0.3ML SYR SUBCUT SCH (10:57)
[2021-12-08] MEDS ORDERED: SODIUM POLYSTYRENE SULFONATE 15 G/60 ML BOT PO SCH (11:00)
[2021-12-08] MEDS: DEXT 5%/0.9% NACL 1,000 ML IV SCH (12:09)
[2021-12-08] MEDS ORDERED: MIDODRINE HCL 5MG TABLET PO SCH ×2 (14:30→17:00)
[2021-12-08] MEDS: CEFEPIME 1,000 MG in DEXTROSE 5% WATER 50 ML IV SCH (20:47)
[2021-12-08] MEDS: LACTULOSE 20G/30ML UDC PO SCH (20:47)
[2021-12-09] VITALS (12 sets, daily range): BP systolic 84–113; BP diastolic 43–59
[2021-12-09 07:09] LABS: HEMATOCRIT. 25.4 % (36.0-48.0); MEAN CORPUSCULAR HEMOGLOBIN 30.5 pg (28.0-32.0); MEAN CORPUSCULAR VOLUME 85.6 fL (81.0-99.0); RED BLOOD CELL COUNT 2.96 mill/uL (4.2-5.4); RED CELL DISTRIBUTION WIDTH 24.3 % (11.6-14.6)
[2021-12-09] MEDS: ENOXAPARIN 30MG/0.3ML SYR SUBCUT SCH (08:32)
[2021-12-09] MEDS: MIDODRINE HCL 5MG TABLET PO SCH ×3 (08:32→16:23)
[2021-12-09] MEDS: DEXT 5%/0.9% NACL 1,000 ML IV SCH (08:32)
[2021-12-09] MEDS: DEXTROSE 50% WATER 50ML SYRINGE IV PRN ×2 (08:36→15:40)
[2021-12-09] MEDS ORDERED: VANCOMYCIN 750MG PREMIX 150 ML IV SCH (09:00)
[2021-12-09] MEDS ORDERED: VANCOMYCIN 750 MG in DEXT 5% WATER 250 ML IV SCH (09:00)
[2021-12-09 14:16] LABS: PLATELET ESTIMATE DECREASED
[2021-12-09 14:17] LABS: MEAN PLATELET VOLUME 8.7 fl (7.4-10.4)
[2021-12-09 14:18] LABS: PLATELET 110 x1000/uL (130-400)
[2021-12-09 16:24] LABS: BG BASE EXCESS -8.3 mmol/L (-2.0-2.0); BG CARBOXYHEMOGLOBIN 1.1 % (0.5-1.5); BG DEOXYHEMOGLOBIN 5.5 % (0.0-5.0); BG HCO3 ACT 14.2 mmol/L (22.0-26.0); BG METHEMOGLOBIN 0.1 % (0.0-1.5); BG OXYGEN SATURATION 94.4 % (92.0-98.5); BG OXYHEMOGLOBIN 93.3 % (94.0-97.0); BG PCO2 20.5 mmHg (35.0-45.0); BG PH 7.457 (7.350-7.450); BG PO2 74.4 mmHg (75.0-100.0); BG SAMPLE SITE RIGHT RADIAL; BG VENT MODE ROOM AIR
[2021-12-09] MEDS ORDERED: SODIUM BICARBONATE 8.4% 1 MEQ/ML 50ML SYR IV NR (17:00)
[2021-12-09] MEDS: CEFEPIME 1,000 MG in DEXTROSE 5% WATER 50 ML IV SCH (19:50)
[2021-12-09] MEDS: LACTULOSE 20G/30ML UDC PO SCH (19:56)
[2021-12-10] VITALS (12 sets, daily range): BP systolic 104–148; BP diastolic 50–101
[2021-12-10] MEDS: DEXT 5%/0.9% NACL 1,000 ML IV SCH (04:57)
[2021-12-10] MEDS: ENOXAPARIN 30MG/0.3ML SYR SUBCUT SCH (08:18)
[2021-12-10] MEDS: MIDODRINE HCL 5MG TABLET PO SCH ×3 (08:18→17:00)
[2021-12-10] MEDS ORDERED: VANCOMYCIN 500MG PREMIX 100 ML IV SCH (18:00)
[2021-12-10] MEDS ORDERED: DEXTROSE 50% WATER 50ML SYRINGE IV PRN (20:00)
[2021-12-10 20:39] LABS: PLATELET 121 x1000/uL (130-400); RED BLOOD CELL COUNT 3.45 mill/uL (4.2-5.4); RED CELL DISTRIBUTION WIDTH 24.9 % (11.6-14.6)
[2021-12-10 20:54] LABS: T4 FREE 1.26 ng/dL (0.76-1.46)
[2021-12-10 21:00] LABS: PLATELET ESTIMATE DECREASED
[2021-12-10] MEDS: INSULIN LISPRO 100 UNITS/ML SUBCUT SCH (21:00)
[2021-12-10] MEDS: BLOOD SUGAR DIAGNOSTIC STRIP TEST SCH (21:00)
[2021-12-10] MEDS: LACTULOSE 20G/30ML UDC PO SCH (21:23)
[2021-12-10] MEDS: CEFEPIME 1,000 MG in DEXTROSE 5% WATER 50 ML IV SCH (21:38)
[2021-12-11] VITALS (12 sets, daily range): BP systolic 128–144; BP diastolic 63–85
[2021-12-11] MEDS: DEXT 5%/0.9% NACL 1,000 ML IV SCH ×2 (01:16→21:44)
[2021-12-11] MEDS: INSULIN LISPRO 100 UNITS/ML SUBCUT SCH ×4 (08:00→20:28)
[2021-12-11] MEDS: BLOOD SUGAR DIAGNOSTIC STRIP TEST SCH ×4 (08:03→20:28)
[2021-12-11] MEDS: MIDODRINE HCL 5MG TABLET PO SCH ×3 (09:00→17:00)
[2021-12-11] MEDS: ENOXAPARIN 30MG/0.3ML SYR SUBCUT SCH (09:24)
[2021-12-11 14:18] LABS: VITAMIN B12 SERUM > 2000.0 pg/mL (211-911)
[2021-12-11] MEDS: DEXTROSE 50% WATER 50ML SYRINGE IV PRN (16:50)
[2021-12-11] MEDS: LACTULOSE 20G/30ML UDC PO SCH (20:53)
[2021-12-11] MEDS: CEFEPIME 1,000 MG in DEXTROSE 5% WATER 50 ML IV SCH (20:53)
[2021-12-12] VITALS (13 sets, daily range): BP systolic 88–136; BP diastolic 45–91
[2021-12-12] MEDS: INSULIN LISPRO 100 UNITS/ML SUBCUT SCH ×4 (08:00→23:36)
[2021-12-12 08:02] LABS: HEMATOCRIT. 29.1 % (36.0-48.0); HEMOGLOBIN. 9.7 g/dL (12.0-16.0); MEAN CORPUSCULAR VOLUME 86.9 fL (81.0-99.0); RED BLOOD CELL COUNT 3.35 mill/uL (4.2-5.4); RED CELL DISTRIBUTION WIDTH 25.3 % (11.6-14.6)
[2021-12-12] MEDS: BLOOD SUGAR DIAGNOSTIC STRIP TEST SCH ×4 (08:22→23:35)
[2021-12-12] MEDS: MIDODRINE HCL 5MG TABLET PO SCH ×3 (08:23→18:08)
[2021-12-12] MEDS: ENOXAPARIN 30MG/0.3ML SYR SUBCUT SCH (08:35)
[2021-12-12 08:42] LABS: MEAN PLATELET VOLUME 7.8 fl (7.4-10.4); PLATELET ESTIMATE DECREASED
[2021-12-12 08:43] LABS: PLATELET 98 x1000/uL (130-400)
[2021-12-12] MEDS: DEXT 5%/0.9% NACL 1,000 ML IV SCH ×2 (15:45→20:19)
[2021-12-12] MEDS ORDERED: PHENYLEPH/PRAMOXIN/GLYCR/PET RECTAL CREAM 26GM PR PRN (18:00)
[2021-12-12] MEDS: CEFEPIME 1,000 MG in DEXTROSE 5% WATER 50 ML IV SCH (20:16)
[2021-12-12] MEDS: LACTULOSE 20G/30ML UDC PO SCH (20:16)
[2021-12-13] VITALS (49 sets, daily range): BP systolic 70–166; BP diastolic 36–76
[2021-12-13] MEDS: PHENYLEPHRINE/SHK LV/MO/PET RECTAL OINTMENT 57GM PR PRN ×3 (01:27→08:27)
[2021-12-13] MEDS: BLOOD SUGAR DIAGNOSTIC STRIP TEST SCH ×4 (06:00→23:27)
[2021-12-13] MEDS: INSULIN LISPRO 100 UNITS/ML SUBCUT SCH ×4 (06:00→23:28)
[2021-12-13] MEDS: MIDODRINE HCL 5MG TABLET PO SCH ×3 (08:20→16:25)
[2021-12-13] MEDS: ENOXAPARIN 30MG/0.3ML SYR SUBCUT SCH (08:49)
[2021-12-13 13:28] LABS: CHLORIDE 127 mEq/L (98-107)
[2021-12-13] MEDS ORDERED: SODIUM CHLORIDE 0.9% 1,000 ML IV ONE (13:30)
[2021-12-13 13:32] LABS: HEMATOCRIT 26.1 % (36.0-48.0); HEMOGLOBIN 8.8 g/dL (12.0-16.0); MEAN CORPUSCULAR HEMOGLOBIN 29.4 pg (28.0-32.0); MEAN CORPUSCULAR VOLUME 87.2 fL (81.0-99.0); PLATELET 95 x1000/uL (130-400); RED BLOOD CELL COUNT 2.99 mill/uL (4.2-5.4); RED CELL DISTRIBUTION WIDTH 25.6 % (11.6-14.6)
[2021-12-13 16:17] LABS: BG BASE EXCESS -10.8 mmol/L (-2.0-2.0); BG CARBOXYHEMOGLOBIN 1.5 % (0.5-1.5); BG DEOXYHEMOGLOBIN 5.1 % (0.0-5.0); BG HCO3 ACT 11.4 mmol/L (22.0-26.0); BG METHEMOGLOBIN 0.3 % (0.0-1.5); BG OXYGEN SATURATION 94.8 % (92.0-98.5); BG OXYHEMOGLOBIN 93.1 % (94.0-97.0); BG PCO2 16.8 mmHg (35.0-45.0); BG PH 7.451 (7.350-7.450); BG PO2 72.8 mmHg (75.0-100.0); BG SAMPLE SITE RIGHT BRACHIAL; BG TOTAL HEMOGLOBIN 8.7 g/dL (12.0-18.0); BG VENT MODE ROOM AIR
[2021-12-13] MEDS ORDERED: SODIUM BICARBONATE 8.4% 1 MEQ/ML 50ML SYR IV NR (16:19)
[2021-12-13] MEDS ORDERED: ALBUMIN HUMAN 25GM/100ML (25%) IV NR (16:30)
[2021-12-13] MEDS ORDERED: NOREPINEPHRINE 8 MG in SODIUM CHLORIDE 0.9% 242 ML IV PRN (17:00)
[2021-12-13] MEDS: DEXTROSE 50% WATER 50ML SYRINGE IV PRN ×2 (17:15→23:12)
[2021-12-13] MEDS: NOREPINEPHRINE 8 MG in DEXT 5% WATER 242 ML IV PRN (18:51)
[2021-12-13] MEDS: SODIUM BICARBONATE 100 MEQ in DEXTROSE 5% WATER 1,000 ML IV SCH (19:49)
[2021-12-13] MEDS: LACTULOSE 20G/30ML UDC PO SCH (21:00)
[2021-12-14] VITALS (89 sets, daily range): BP systolic 55–140; BP diastolic 36–77
[2021-12-14] MEDS: MIDODRINE HCL 5MG TABLET PO SCH ×3 (08:21→16:54)
[2021-12-14] MEDS: ENOXAPARIN 30MG/0.3ML SYR SUBCUT SCH (08:23)
[2021-12-14 09:57] LABS: BG BASE EXCESS -9.9 mmol/L (-2.0-2.0); BG CARBOXYHEMOGLOBIN 0.9 % (0.5-1.5); BG DEOXYHEMOGLOBIN 3.6 % (0.0-5.0); BG FRACTION INSPIRED OXYGEN 21; BG HCO3 ACT 12.4 mmol/L (22.0-26.0); BG METHEMOGLOBIN 0.1 % (0.0-1.5); BG OXYGEN SATURATION 96.4 % (92.0-98.5); BG OXYHEMOGLOBIN 95.4 % (94.0-97.0); BG PCO2 18.7 mmHg (35.0-45.0); BG PH 7.441 (7.350-7.450); BG PO2 87.7 mmHg (75.0-100.0); BG SAMPLE SITE LEFT BRACHIAL; BG TOTAL HEMOGLOBIN 9.7 g/dL (12.0-18.0); BG VENT MODE ROOM AIR
[2021-12-14 10:55] LABS: HEMATOCRIT. 28.7 % (36.0-48.0); HEMOGLOBIN. 9.7 g/dL (12.0-16.0); MEAN CORPUSCULAR HEMOGLOBIN 29.6 pg (28.0-32.0); MEAN CORPUSCULAR VOLUME 87.3 fL (81.0-99.0); MEAN PLATELET VOLUME 8.6 fl (7.4-10.4); PLATELET 88 x1000/uL (130-400); RED BLOOD CELL COUNT 3.28 mill/uL (4.2-5.4); RED CELL DISTRIBUTION WIDTH 25.6 % (11.6-14.6)
[2021-12-14 11:07] LABS: CHLORIDE 126 mEq/L (98-107)
[2021-12-14 11:34] LABS: NUCLEATED RED BLOOD CELLS 2 /100 WBC
[2021-12-14 11:35] LABS: PLATELET ESTIMATE DECREASED
[2021-12-14] MEDS: BLOOD SUGAR DIAGNOSTIC STRIP TEST SCH ×2 (12:00→16:54)
[2021-12-14] MEDS: INSULIN LISPRO 100 UNITS/ML SUBCUT SCH ×2 (12:00→16:54)
[2021-12-14] MEDS ORDERED: SODIUM BICARBONATE 8.4% 1 MEQ/ML 50ML SYR IV NR (13:45)
[2021-12-14] MEDS ORDERED: CEFEPIME 2,000 MG in DEXT 5% WATER 100 ML IV SCH (14:00)
[2021-12-14] MEDS: NOREPINEPHRINE 8 MG in DEXT 5% WATER 242 ML IV PRN (16:02)
[2021-12-14] MEDS: CEFEPIME 500 MG in DEXTROSE 5% WATER 50 ML IV SCH (16:03)
[2021-12-14] MEDS: SODIUM BICARBONATE 100 MEQ in DEXTROSE 5% WATER 1,000 ML IV SCH (17:16)
[2021-12-14 21:24] LABS: PROTHROMBIN TIME > 100.0 sec (9.6-11.0)
[2021-12-14 21:27] LABS: INR > 10.0
[2021-12-14] MEDS: LACTULOSE 20G/30ML UDC PO SCH (21:37)
[2021-12-14] MEDS: PHYTONADIONE 10MG/ML AMP SUBCUT SCH (23:21)
[2021-12-15] VITALS (106 sets, daily range): BP systolic 48–182; BP diastolic 21–92
[2021-12-15 05:31] LABS: HEMATOCRIT. 26.1 % (36.0-48.0); HEMOGLOBIN. 8.9 g/dL (12.0-16.0); MEAN CORPUSCULAR HEMOGLOBIN 29.9 pg (28.0-32.0); MEAN CORPUSCULAR VOLUME 87.2 fL (81.0-99.0); RED BLOOD CELL COUNT 2.99 mill/uL (4.2-5.4); RED CELL DISTRIBUTION WIDTH 25.6 % (11.6-14.6)
[2021-12-15] MEDS: INSULIN LISPRO 100 UNITS/ML SUBCUT SCH ×4 (05:36→18:00)
[2021-12-15] MEDS: BLOOD SUGAR DIAGNOSTIC STRIP TEST SCH ×4 (05:37→18:37)
[2021-12-15 05:40] LABS: INR 2.5; PROTHROMBIN TIME 24.8 sec (9.6-11.0)
[2021-12-15] MEDS: NOREPINEPHRINE 8 MG in DEXT 5% WATER 242 ML IV PRN (05:41)
[2021-12-15] MEDS ORDERED: LIDOCAINE HCL 1% 20ML VIAL (Pyxis) INJ ONE (08:05)
[2021-12-15 09:04] LABS: PLATELET ESTIMATE DECREASED
[2021-12-15 09:05] LABS: MEAN PLATELET VOLUME 8.8 fl (7.4-10.4); PLATELET 81 x1000/uL (130-400)
[2021-12-15 09:06] LABS: BG CARBOXYHEMOGLOBIN 1.9 % (0.5-1.5); BG DEOXYHEMOGLOBIN 1.9 % (0.0-5.0); BG FRACTION INSPIRED OXYGEN 24; BG HCO3 ACT 18.3 mmol/L (22.0-26.0); BG METHEMOGLOBIN 0.3 % (0.0-1.5); BG OXYGEN SATURATION 98.1 % (92.0-98.5); BG OXYHEMOGLOBIN 95.9 % (94.0-97.0); BG PCO2 23.7 mmHg (35.0-45.0); BG PH 7.506 (7.350-7.450); BG SAMPLE SITE RIGHT RADIAL; BG VENT MODE NASAL CANNULA
[2021-12-15] MEDS: MIDODRINE HCL 5MG TABLET PO SCH ×3 (09:41→18:57)
[2021-12-15] MEDS ORDERED: NOREPINEPHRINE 32 MG in DEXT 5% WATER 218 ML IV PRN (11:54)
[2021-12-15] MEDS ORDERED: NOREPINEPHRINE 32 MG in DEXTROSE 5% WATER 250 ML IV PRN (12:00)
[2021-12-15] MEDS ORDERED: PHENYLEPHRINE 100 MG in DEXT 5% WATER 240 ML IV PRN (12:00)
[2021-12-15] MEDS: CEFEPIME 500 MG in DEXTROSE 5% WATER 50 ML IV SCH (17:00)
[2021-12-15] MEDS: SODIUM BICARBONATE 100 MEQ in DEXTROSE 5% WATER 1,000 ML IV SCH (18:37)
[2021-12-15] MEDS: PHYTONADIONE 10MG/ML AMP SUBCUT SCH (21:09)
[2021-12-15] MEDS: LACTULOSE 20G/30ML UDC PO SCH (21:09)
[2021-12-16] MEDS: BLOOD SUGAR DIAGNOSTIC STRIP TEST SCH
[2021-12-16] MEDS: INSULIN LISPRO 100 UNITS/ML SUBCUT SCH
== END 2021-12-16 01:26 | DRG 871 ==
LOC: ER 06:41 → ENRESERV 10:23 → MICUNO 12:00 → 5EST 12-08 09:30 → MICUNO 12-13 17:40
PROVIDERS: ADMIT Internal Medicine Nephrology; ATTEND Internal Medicine Nephrology
PROC: 05HY33Z Insertion of Infusion Device into Upper Vein, Percutaneous Approach (ICD-10-PCS; 2021-12-15)
PROC: B54MZZA Ultrasonography of Right Upper Extremity Veins, Guidance (ICD-10-PCS; 2021-12-15)
PROC: 06HM33Z Insertion of Infusion Device into Right Femoral Vein, Percutaneous Approach (ICD-10-PCS; 2021-12-15)
PROC: B54BZZA Ultrasonography of Right Lower Extremity Veins, Guidance (ICD-10-PCS; 2021-12-15)
PROC: 30233K1 Transfusion of Nonautologous Frozen Plasma into Peripheral Vein, Percutaneous Approach (ICD-10-PCS; 2021-12-15)
PROC: 4A00X4Z Measurement of Central Nervous Electrical Activity, External Approach (ICD-10-PCS; principal; 2021-12-16)
DX: A41.9 Sepsis, unspecified organism (principal); E43 Unspecified severe protein-calorie malnutrition; R65.21 Severe sepsis with septic shock; G92.8 Other toxic encephalopathy; J69.0 Pneumonitis due to inhalation of food and vomit; J96.00 Acute respiratory failure, unspecified whether with hypoxia or hypercapnia; N17.0 Acute kidney failure with tubular necrosis; E87.1 Hypo-osmolality and hyponatremia; N39.0 Urinary tract infection, site not specified; J84.9 Interstitial pulmonary disease, unspecified; K92.2 Gastrointestinal hemorrhage, unspecified; D69.6 Thrombocytopenia, unspecified; I11.9 Hypertensive heart disease without heart failure; R57.1 Hypovolemic shock; D64.9 Anemia, unspecified; R73.9 Hyperglycemia, unspecified; Z66 Do not resuscitate; E16.2 Hypoglycemia, unspecified; E87.8 Other disorders of electrolyte and fluid balance, not elsewhere classified; F03.90 Unspecified dementia, unspecified severity, without behavioral disturbance, psychotic disturbance, mood disturbance, and anxiety; K62.89 Other specified diseases of anus and rectum; Z93.1 Gastrostomy status; Z68.21 Body mass index [BMI] 21.0-21.9, adult; R13.19 Other dysphagia
CPT/HCPCS: 36415; 36556; 36600; 70551; 71045; 74176; 76937; 80048; 80053; 80202; 81003; 82140; 82375; 82550; 82607; 82746; 82805; 82962; 83036; 83605; 84145; 84439; 84443; 84481; 84484; 85025; 85027; 86850; 86900; 86927; 87426; 93005; 99291; A6261; C1725; C1752; C1887; C1893; J0692; J1650; J3370; J3430; J3490; J7030; J7042; J7060; J7070; P9017; P9047; A4315